=== PATIENT | female | born 1975 | race Caucasian/White ===

== ENCOUNTER 2018-09-26 09:41 | Emergency (ER) | payer MEDICAID ==
[~2018-09-26] VITALS: Ht 160 cm; Wt 125.8 kg
[~2018-09-26 09:41] MED LIST: ALBU18HF2 INH; ARIP10TA15 PO; DIAZ2TAB3 PO; DIPH25CA83 PO; ESZO3TAB66 PO; ONDA4TAB6 PO
[2018-09-26 10:33] LABS: BASOPHILS % (AUTO) 0.3 % (0-1); EOSINOPHILS # (AUTO) 0.3 X10'3 (0-0.9); EOSINOPHILS % (AUTO) 2.4 % (0-6); HEMATOCRIT 43.2 % (35.0-45.0); HEMOGLOBIN 14.7 g/dl (12.0-16.0); LYMPHOCYTES # (AUTO) 1.4 X10'3 (1.1-4.8); LYMPHOCYTES % (AUTO) 11.3 % (21-51); MEAN CORPUSCULAR HEMOGLOBIN 29.4 PG (27.0-31.0); MEAN CORPUSCULAR HGB CONC 33.9 g/dL (33.0-36.5); MEAN CORPUSCULAR VOLUME 86.6 FL (78-98); MEAN PLATELET VOLUME 8.4 FL (7.4-10.4); MONOCYTES # (AUTO) 0.5 X10'3 (0-0.9); MONOCYTES % (AUTO) 4.2 % (2-12); NEUTROPHILS # (AUTO) 9.8 X10'3 (1.8-7.7); NEUTROPHILS % (AUTO) 81.8 % (42-75); PLATELET COUNT 296 X10'3 (140-440); RED BLOOD COUNT 4.99 X10'6 (4.20-5.60); RED CELL DISTRIBUTION WIDTH 14.5 % (11.5-14.5)
[2018-09-26] MEDS ORDERED: normal saline 1000ml 1,000 ML IV ONE ×2 (10:45→12:50)
[2018-09-26] MEDS ORDERED: ondansetron/PF 4mg/2ml inj IV ONE ×2 (10:45→12:50)
[2018-09-26 10:47] LABS: ALANINE AMINOTRANSFERASE 24 U/L (12-78); ALBUMIN 3.9 G/DL (3.4-5.0); ALBUMIN/GLOBULIN RATIO 0.9 (1.1-1.5); ALKALINE PHOSPHATASE 76 IU/L (46-116); AMYLASE 29 U/L (25-115); ANION GAP 12 (8-16); ASPARTATE AMINO TRANSFERASE 25 U/L (10-37); BILIRUBIN,TOTAL 0.4 MG/DL (0.1-1.0); BLOOD UREA NITROGEN 17 MG/DL (7-18); BUN/CREATININE RATIO 18.5 (6.6-38.0); CALCIUM 8.9 MG/DL (8.5-10.1); CHLORIDE 104 MMOL/L (99-107); CREATININE 0.92 MG/DL (0.40-0.90); GLUCOSE 106 MG/DL (70-104); LIPASE < 50 U/L (73-393); POTASSIUM 3.7 MMOL/L (3.5-5.1); SODIUM 140 MMOL/L (135-145); TOTAL CARBON DIOXIDE 24.1 MMOL/L (24-32); TOTAL PROTEIN 8.1 G/DL (6.4-8.2); eGFR 67 ML/MIN
[2018-09-26] MEDS ORDERED: METH500T PO (10:51)
[2018-09-26] MEDS ORDERED: ketorolac tromethamine 15mg/ml inj. IV ONE (10:55)
[2018-09-26] MEDS ORDERED: LORazepam 2 mg/ml vial IV ONE (10:55)
[2018-09-26] MEDS ORDERED: proCHLORperazine 10 MG/2 ml inj IV ONE (10:55)
[2018-09-26 11:00] LABS: PROTHROMBIN TIME 10.3 SECONDS (9.0-12.0)
[2018-09-26 12:23] LABS: CLARITY,URINE CLEAR (Clear); COLOR,URINE YELLOW (Yellow); GLUCOSE, URINE NEGATIVE (Neg); KETONES,URINE 40 mg/dl (Neg); LEUKOCYTE ESTERASE ,URINE NEGATIVE (Neg); NITRITES, URINE NEGATIVE (Neg); OCCULT BLOOD,URINE TRACE-LYSED (Neg); PH,URINE 8.5 (4.8-8.0); PROTEIN,URINE NEGATIVE (Neg); UROBILINOGEN,URINE 0.2 E.U/dL (0.2-1.0)
[2018-09-26 12:29] LABS: URINE HCG NEGATIVE (NEG)
[2018-09-26 12:33] LABS: UA COLLECTION TYPE NON-SPECIFIED
[2018-09-26 12:40] LABS: SQUAMOUS EPITHELIAL CELL,UR FEW /LPF (FEW)
[2018-09-26 12:41] LABS: BACTERIA,URINE 1+ /HPF (Neg); RBC,URINE 0-2 /HPF (0-2); WBC,URINE 0-4 /HPF (0-4)
[2018-09-26] MEDS ORDERED: HYDR-3965 PO (12:52)
[2018-09-26] MEDS ORDERED: ONDA8TAB6 PO (12:52)
[2018-09-26 13:23] VITALS: BP 179/98
== END 2018-09-26 13:52 | disposition home or self-care (01) ==
LOC: ER 09:42
DX: R10.9 Unspecified abdominal pain (principal); R11.2 Nausea with vomiting, unspecified; J45.909 Unspecified asthma, uncomplicated; M19.90 Unspecified osteoarthritis, unspecified site; Z86.69 Personal history of other diseases of the nervous system and sense organs; Z90.710 Acquired absence of both cervix and uterus; Z98.890 Other specified postprocedural states; Z88.0 Allergy status to penicillin; Z88.5 Allergy status to narcotic agent; Z88.6 Allergy status to analgesic agent; Z79.899 Other long term (current) drug therapy
CPT/HCPCS: 36415; 74176; 80053; 81001; 81025; 82150; 83690; 85025; 85610; 96374; 96375; 96376; 99284; J0780; J1885; J2060; J2405; J7030

== ENCOUNTER 2018-11-04 14:43 | Emergency (ER) | payer MEDICAID ==
[~2018-11-04] VITALS: Ht 160 cm; Wt 125.0 kg
[~2018-11-04 14:43] MED LIST changes: +METH500T PO; +ONDA8TAB6 PO
[2018-11-04 14:51] VITALS: BP 119/83
== END 2018-11-04 16:13 | disposition home or self-care (01) ==
LOC: ER 14:44
DX: S70.11XA Contusion of right thigh, initial encounter (principal); J45.909 Unspecified asthma, uncomplicated; M19.90 Unspecified osteoarthritis, unspecified site; G89.29 Other chronic pain; Z90.710 Acquired absence of both cervix and uterus; Z88.6 Allergy status to analgesic agent; Z88.1 Allergy status to other antibiotic agents; Z88.0 Allergy status to penicillin; W54.1XXA Struck by dog, initial encounter; Y93.89 Activity, other specified; Y92.89 Other specified places as the place of occurrence of the external cause; Y99.8 Other external cause status
CPT/HCPCS: 99281

== ENCOUNTER 2019-04-19 17:53 | Emergency (ER) | payer MEDICAID ==
[~2019-04-19] VITALS: Ht 160 cm; Wt 123.5 kg
[2019-04-19 18:58] LABS: BASOPHILS % (AUTO) 0.3 % (0-1); EOSINOPHILS % (AUTO) 0.1 % (0-6); HEMATOCRIT 40.5 % (35.0-45.0); HEMOGLOBIN 13.8 g/dl (12.0-16.0); LYMPHOCYTES # (AUTO) 0.9 X10'3 (1.1-4.8); LYMPHOCYTES % (AUTO) 6.8 % (21-51); MEAN CORPUSCULAR HEMOGLOBIN 30.3 PG (27.0-31.0); MEAN CORPUSCULAR HGB CONC 34.1 g/dL (33.0-36.5); MEAN CORPUSCULAR VOLUME 88.8 FL (78-98); MEAN PLATELET VOLUME 8.7 FL (7.4-10.4); MONOCYTES # (AUTO) 0.3 X10'3 (0-0.9); NEUTROPHILS % (AUTO) 90.8 % (42-75); PLATELET COUNT 283 X10'3 (140-440); RED BLOOD COUNT 4.57 X10'6 (4.20-5.60); RED CELL DISTRIBUTION WIDTH 13.7 % (11.5-14.5); WHITE BLOOD COUNT 13.2 X10'3 (4.5-11.0)
[2019-04-19 19:14] LABS: ALANINE AMINOTRANSFERASE 30 U/L (12-78); ALBUMIN 4.1 G/DL (3.4-5.0); ALKALINE PHOSPHATASE 69 IU/L (46-116); ANION GAP 12 (8-16); ASPARTATE AMINO TRANSFERASE 15 U/L (10-37); BILIRUBIN,TOTAL 0.3 MG/DL (0.1-1.0); BLOOD UREA NITROGEN 13 MG/DL (7-18); BUN/CREATININE RATIO 14.4 (6.6-38.0); CALCIUM 8.9 MG/DL (8.5-10.1); CHLORIDE 104 MMOL/L (99-107); GLUCOSE 138 MG/DL (70-104); LIPASE < 50 U/L (73-393); POTASSIUM 3.5 MMOL/L (3.5-5.1); SODIUM 140 MMOL/L (135-145); TOTAL CARBON DIOXIDE 23.9 MMOL/L (24-32); TOTAL PROTEIN 8.2 G/DL (6.4-8.2); eGFR 69 ML/MIN
[2019-04-19] MEDS ORDERED: normal saline 1000ML IV soln IVB ONE ×2 (19:45→20:25)
[2019-04-19 19:57] LABS: URINE HCG NEGATIVE (NEG)
[2019-04-19 20:00] LABS: CLARITY,URINE CLEAR (Clear); COLOR,URINE YELLOW (Yellow); GLUCOSE, URINE NEGATIVE (Neg); KETONES,URINE 40 mg/dl (Neg); LEUKOCYTE ESTERASE ,URINE NEGATIVE (Neg); NITRITES, URINE NEGATIVE (Neg); OCCULT BLOOD,URINE SMALL (Neg); PH,URINE 7.5 (4.8-8.0); PROTEIN,URINE NEGATIVE (Neg); UROBILINOGEN,URINE 0.2 E.U/dL (0.2-1.0)
[2019-04-19 20:05] LABS: UA COLLECTION TYPE VOIDED
[2019-04-19 20:07] LABS: BACTERIA,URINE NONE SEEN /HPF (Neg); MUCUS STRANDS NONE SEEN /LPF (Neg); SQUAMOUS EPITHELIAL CELL,UR FEW /LPF (FEW); WBC,URINE NONE SEEN /HPF (0-4)
[2019-04-19] MEDS ORDERED: LORazepam 2 mg/ml vial IV ONE (20:25)
[2019-04-19] MEDS ORDERED: diphenhydrAMINE 50 mg/ml inj IV ONE (20:25)
[2019-04-19] MEDS ORDERED: metoclopramide 5 mg/ml inj IV ONE (20:25)
[2019-04-19] MEDS ORDERED: fentaNYL/PF 50MCG/1 ML 2ML syringe IV ONE (20:25)
[2019-04-19] MEDS ORDERED: levoFLOXACIN-Levaquin 500mg/D5 100 ML IV ONE (21:05)
[2019-04-19] MEDS ORDERED: ONDA4TAB12 PO (21:22)
[2019-04-19] MEDS ORDERED: HYDR-3965 PO (21:22)
[2019-04-19] MEDS ORDERED: CIPR-230 PO (21:22)
[2019-04-19] MEDS ORDERED: METR-159 PO (21:22)
--- NOTE | 2019-04-19 21:58 | NUR ---
PT UP TO BR TO VOID. REPROTS PAIN NOW 7 OUT OF 10 AND ONLY IN HER MID ABDOMEN, NO LOGER RADIATING TO HER BACK. STABLE VS. DR. DAVIDSON TALKING WITH PT AND SHE IS PREPARED FOR DC ONCE LEVOQUIN FINISHES IN APROX 1 HR. PT IS AGREEABLE TO THIS PLAN.
[2019-04-19 22:05] VITALS: BP 131/76
== END 2019-04-19 22:10 | disposition home or self-care (01) ==
LOC: ER 17:54
DX: R10.30 Lower abdominal pain, unspecified (principal); R11.2 Nausea with vomiting, unspecified; J45.909 Unspecified asthma, uncomplicated; M19.90 Unspecified osteoarthritis, unspecified site; G89.29 Other chronic pain; Z87.442 Personal history of urinary calculi; Z86.69 Personal history of other diseases of the nervous system and sense organs; Z90.710 Acquired absence of both cervix and uterus; Z98.890 Other specified postprocedural states; Z90.721 Acquired absence of ovaries, unilateral; Z88.0 Allergy status to penicillin; Z88.6 Allergy status to analgesic agent; Z88.5 Allergy status to narcotic agent; Z88.1 Allergy status to other antibiotic agents; Z79.899 Other long term (current) drug therapy
CPT/HCPCS: 36415; 74176; 80053; 81001; 81025; 83690; 84145; 85025; 85610; 96361; 96365; 96366; 96375; 99284; J1200; J1956; J2060; J2765; J3010; J7030

== ENCOUNTER 2019-04-21 09:46 | Emergency (ER) | payer MEDICAID ==
[~2019-04-21] VITALS: Ht 160 cm; Wt 123.8 kg
[~2019-04-21 09:46] MED LIST changes: +CIPR-230 PO; +HYDR-3965 PO; +METR-159 PO; +ONDA4TAB12 PO
[2019-04-21] MEDS ORDERED: ondansetron/PF 4mg/2ml inj IV ONE ×2 (10:20→11:15)
[2019-04-21] MEDS ORDERED: haloperidol lactate 5mg/ml inj IM ONE (11:15)
[2019-04-21] MEDS ORDERED: normal saline 1000ML IV soln IVB ONE (11:15)
[2019-04-21] MEDS ORDERED: diphenhydrAMINE 50 mg/ml inj IM ONE (11:15)
[2019-04-21 11:55] LABS: URINE HCG NEGATIVE (NEG)
[2019-04-21 12:02] LABS: URINE AMPHETAMINE SCREEN NEGATIVE (Neg); URINE BARBITUATE SCREEN NEGATIVE (Neg); URINE BENZODIAZEPINES SCREEN POSITIVE (Neg); URINE CANNABINOID SCREEN POSITIVE (Neg); URINE COCAINE SCREEN NEGATIVE (Neg); URINE METHADONE SCREEN NEGATIVE (Neg); URINE OPIATE SCREEN POSITIVE (Neg); URINE PHENCYCLIDINE SCREEN NEGATIVE (Neg)
[2019-04-21] MEDS ORDERED: acetaminophen 325mg tablet PO ONE (13:05)
[2019-04-21] MEDS ORDERED: LORazepam 2 mg/ml vial IV ONE (13:05)
--- NOTE | 2019-04-21 13:14 | NUR ---
PT WAS VERY HAPPT YO FIND OUT THAT SHE WAS GETTING ATIVAN.
[2019-04-21 13:47] LABS: BASOPHILS % (AUTO) 0.1 % (0-1); EOSINOPHILS % (AUTO) 0.2 % (0-6); HEMATOCRIT 40.2 % (35.0-45.0); HEMOGLOBIN 13.5 g/dl (12.0-16.0); LYMPHOCYTES # (AUTO) 0.6 X10'3 (1.1-4.8); MEAN CORPUSCULAR HEMOGLOBIN 29.8 PG (27.0-31.0); MEAN CORPUSCULAR HGB CONC 33.5 g/dL (33.0-36.5); MEAN CORPUSCULAR VOLUME 88.9 FL (78-98); MEAN PLATELET VOLUME 8.9 FL (7.4-10.4); MONOCYTES # (AUTO) 0.2 X10'3 (0-0.9); MONOCYTES % (AUTO) 2.8 % (2-12); NEUTROPHILS # (AUTO) 7.9 X10'3 (1.8-7.7); NEUTROPHILS % (AUTO) 89.9 % (42-75); PLATELET COUNT 256 X10'3 (140-440); RED BLOOD COUNT 4.53 X10'6 (4.20-5.60); RED CELL DISTRIBUTION WIDTH 13.6 % (11.5-14.5); WHITE BLOOD COUNT 8.7 X10'3 (4.5-11.0)
[2019-04-21 13:48] LABS: ALANINE AMINOTRANSFERASE 44 U/L (12-78); ALKALINE PHOSPHATASE 61 IU/L (46-116); ANION GAP 11 (8-16); ASPARTATE AMINO TRANSFERASE 34 U/L (10-37); BILIRUBIN,TOTAL 0.4 MG/DL (0.1-1.0); BLOOD UREA NITROGEN 11 MG/DL (7-18); BUN/CREATININE RATIO 11.6 (6.6-38.0); CALCIUM 8.3 MG/DL (8.5-10.1); CHLORIDE 106 MMOL/L (99-107); CREATININE 0.95 MG/DL (0.40-0.90); GLUCOSE 107 MG/DL (70-104); LIPASE < 50 U/L (73-393); POTASSIUM 3.1 MMOL/L (3.5-5.1); SODIUM 143 MMOL/L (135-145); TOTAL CARBON DIOXIDE 25.7 MMOL/L (24-32); eGFR 65 ML/MIN
[2019-04-21] MEDS ORDERED: potassium Cl 20 mEq SR tablet PO STA (13:49)
[2019-04-21 14:19] VITALS: BP 162/91
== END 2019-04-21 10:49 | disposition home or self-care (01) ==
LOC: ER 09:47
DX: G43.A0 Cyclical vomiting, in migraine, not intractable (principal); R10.84 Generalized abdominal pain; J45.909 Unspecified asthma, uncomplicated; G89.29 Other chronic pain; M19.90 Unspecified osteoarthritis, unspecified site; Z87.442 Personal history of urinary calculi; Z86.69 Personal history of other diseases of the nervous system and sense organs; Z90.710 Acquired absence of both cervix and uterus; Z90.721 Acquired absence of ovaries, unilateral; Z98.890 Other specified postprocedural states; Z88.0 Allergy status to penicillin; Z88.6 Allergy status to analgesic agent; Z88.5 Allergy status to narcotic agent; Z88.1 Allergy status to other antibiotic agents; Z88.8 Allergy status to other drugs, medicaments and biological substances; Z79.899 Other long term (current) drug therapy
CPT/HCPCS: 36415; 80053; 80305; 81025; 83690; 85025; 96361; 96372; 96374; 96375; 99283; J1200; J1630; J2060; J2405; J7030

== ENCOUNTER 2019-04-23 10:02 | Emergency (ER) | payer MEDICAID ==
[~2019-04-23] VITALS: Ht 160 cm; Wt 121.0 kg
[2019-04-23] MEDS ORDERED: normal saline 1000ML IV soln IVB ONE (11:00)
[2019-04-23] MEDS ORDERED: haloperidol lactate 5mg/ml inj IM ONE (11:00)
[2019-04-23] MEDS ORDERED: LORazepam 2 mg/ml vial IV ONE (11:00)
[2019-04-23] MEDS ORDERED: metoclopramide 5 mg/ml inj IV ONE (11:00)
[2019-04-23 11:27] LABS: BASOPHILS # (AUTO) 0.1 X10'3 (0-0.2); BASOPHILS % (AUTO) 0.4 % (0-1); EOSINOPHILS # (AUTO) 0.1 X10'3 (0-0.9); EOSINOPHILS % (AUTO) 0.6 % (0-6); HEMATOCRIT 43.6 % (35.0-45.0); HEMOGLOBIN 14.6 g/dl (12.0-16.0); LYMPHOCYTES # (AUTO) 1.3 X10'3 (1.1-4.8); LYMPHOCYTES % (AUTO) 11.3 % (21-51); MEAN CORPUSCULAR HEMOGLOBIN 29.7 PG (27.0-31.0); MEAN CORPUSCULAR HGB CONC 33.6 g/dL (33.0-36.5); MEAN CORPUSCULAR VOLUME 88.6 FL (78-98); MEAN PLATELET VOLUME 8.5 FL (7.4-10.4); MONOCYTES # (AUTO) 0.5 X10'3 (0-0.9); MONOCYTES % (AUTO) 4.7 % (2-12); NEUTROPHILS # (AUTO) 9.6 X10'3 (1.8-7.7); PLATELET COUNT 325 X10'3 (140-440); RED BLOOD COUNT 4.92 X10'6 (4.20-5.60); RED CELL DISTRIBUTION WIDTH 13.8 % (11.5-14.5); WHITE BLOOD COUNT 11.6 X10'3 (4.5-11.0)
[2019-04-23 11:46] LABS: ALANINE AMINOTRANSFERASE 66 U/L (12-78); ALBUMIN 4.3 G/DL (3.4-5.0); ALBUMIN/GLOBULIN RATIO 1.1 (1.1-1.5); ALKALINE PHOSPHATASE 65 IU/L (46-116); ANION GAP 15 (8-16); ASPARTATE AMINO TRANSFERASE 40 U/L (10-37); BILIRUBIN,TOTAL 0.4 MG/DL (0.1-1.0); BLOOD UREA NITROGEN 15 MG/DL (7-18); BUN/CREATININE RATIO 14.2 (6.6-38.0); CALCIUM 9.1 MG/DL (8.5-10.1); CHLORIDE 102 MMOL/L (99-107); CREATININE 1.06 MG/DL (0.40-0.90); GLUCOSE 114 MG/DL (70-104); LIPASE < 50 U/L (73-393); POTASSIUM 3.3 MMOL/L (3.5-5.1); SODIUM 140 MMOL/L (135-145); TOTAL CARBON DIOXIDE 22.9 MMOL/L (24-32); TOTAL PROTEIN 8.3 G/DL (6.4-8.2); eGFR 57 ML/MIN
--- NOTE | 2019-04-23 11:57 | NUR ---
patient on bed awake,extra warm blanket given.
[2019-04-23 12:04] LABS: URINE HCG NEGATIVE (NEG)
[2019-04-23 12:11] LABS: GLUCOSE, URINE NEGATIVE (Neg); KETONES,URINE 15 mg/dl (Neg); LEUKOCYTE ESTERASE ,URINE NEGATIVE (Neg); NITRITES, URINE NEGATIVE (Neg); OCCULT BLOOD,URINE TRACE-INTACT (Neg); PROTEIN,URINE 30 mg/dl (Neg); UROBILINOGEN,URINE 0.2 E.U/dL (0.2-1.0)
[2019-04-23 12:14] LABS: COLOR,URINE DARK YELLOW (Yellow)
[2019-04-23 12:15] LABS: CLARITY,URINE CLOUDY (Clear); UA COLLECTION TYPE CLN CATCH MIDSTREAM
[2019-04-23 12:36] VITALS: BP 196/92
[2019-04-23 12:54] LABS: WBC,URINE 0-4 /HPF (0-4)
[2019-04-23 12:55] LABS: SQUAMOUS EPITHELIAL CELL,UR MANY /LPF (FEW)
[2019-04-23 12:56] LABS: BACTERIA,URINE FEW /HPF (Neg); RBC,URINE 0-2 /HPF (0-2)
[2019-04-23 13:04] LABS: CAL OXALATE CRYSTALS 1+ /HPF (NEGATIVE); HYALINE CASTS 0-3 /LPF (NEGATIVE); MUCUS STRANDS MODERATE /LPF (Neg)
== END 2019-04-23 12:39 | disposition home or self-care (01) ==
LOC: ER 10:03
DX: G43.A0 Cyclical vomiting, in migraine, not intractable (principal); R10.84 Generalized abdominal pain; R19.7 Diarrhea, unspecified; J45.909 Unspecified asthma, uncomplicated; M19.90 Unspecified osteoarthritis, unspecified site; G89.29 Other chronic pain; Z87.442 Personal history of urinary calculi; Z86.69 Personal history of other diseases of the nervous system and sense organs; Z90.710 Acquired absence of both cervix and uterus; Z98.890 Other specified postprocedural states; Z90.721 Acquired absence of ovaries, unilateral; Z88.0 Allergy status to penicillin; Z88.6 Allergy status to analgesic agent; Z88.5 Allergy status to narcotic agent; Z88.1 Allergy status to other antibiotic agents; Z79.899 Other long term (current) drug therapy
CPT/HCPCS: 36415; 80053; 81001; 81025; 83690; 85025; 96361; 96372; 96374; 96375; 99283; J1630; J2060; J2765; J7030

== ENCOUNTER 2019-05-04 08:21 | Emergency (ER) | payer MEDICAID ==
[~2019-05-04] VITALS: Ht 160 cm; Wt 122.7 kg
[~2019-05-04 08:21] MED LIST changes: -METR-159 PO
[2019-05-04 09:22] LABS: BASOPHILS # (AUTO) 0.1 X10'3 (0-0.2); BASOPHILS % (AUTO) 0.8 % (0-1); EOSINOPHILS # (AUTO) 0.3 X10'3 (0-0.9); EOSINOPHILS % (AUTO) 2.8 % (0-6); HEMATOCRIT 44.1 % (35.0-45.0); HEMOGLOBIN 14.8 g/dl (12.0-16.0); LYMPHOCYTES # (AUTO) 1.9 X10'3 (1.1-4.8); LYMPHOCYTES % (AUTO) 16.9 % (21-51); MEAN CORPUSCULAR HEMOGLOBIN 29.7 PG (27.0-31.0); MEAN CORPUSCULAR HGB CONC 33.5 g/dL (33.0-36.5); MEAN CORPUSCULAR VOLUME 88.7 FL (78-98); MEAN PLATELET VOLUME 8.6 FL (7.4-10.4); MONOCYTES # (AUTO) 0.5 X10'3 (0-0.9); MONOCYTES % (AUTO) 4.7 % (2-12); NEUTROPHILS # (AUTO) 8.4 X10'3 (1.8-7.7); NEUTROPHILS % (AUTO) 74.8 % (42-75); PLATELET COUNT 412 X10'3 (140-440); RED BLOOD COUNT 4.97 X10'6 (4.20-5.60); RED CELL DISTRIBUTION WIDTH 13.9 % (11.5-14.5); WHITE BLOOD COUNT 11.2 X10'3 (4.5-11.0)
[2019-05-04] MEDS ORDERED: ondansetron/PF 4mg/2ml inj IV ONE ×2 (09:30→11:30)
[2019-05-04] MEDS ORDERED: pantoprazole 40 MG vial IV ONE (09:30)
[2019-05-04] MEDS ORDERED: LORazepam 2 mg/ml vial IV ONE (09:30)
[2019-05-04] MEDS ORDERED: haloperidol lactate 5mg/ml inj IM ONE (09:30)
[2019-05-04] MEDS ORDERED: diphenhydrAMINE 50 mg/ml inj IV ONE (09:30)
[2019-05-04 09:32] LABS: ALANINE AMINOTRANSFERASE 37 U/L (12-78); ALBUMIN 4.2 G/DL (3.4-5.0); ALKALINE PHOSPHATASE 70 IU/L (46-116); ANION GAP 12 (8-16); ASPARTATE AMINO TRANSFERASE 17 U/L (10-37); BILIRUBIN,TOTAL 0.2 MG/DL (0.1-1.0); BLOOD UREA NITROGEN 24 MG/DL (7-18); BUN/CREATININE RATIO 26.1 (6.6-38.0); CALCIUM 9.8 MG/DL (8.5-10.1); CHLORIDE 106 MMOL/L (99-107); CREATININE 0.92 MG/DL (0.40-0.90); GLUCOSE 112 MG/DL (70-104); LIPASE 57 U/L (73-393); POTASSIUM 4.3 MMOL/L (3.5-5.1); SODIUM 142 MMOL/L (135-145); TOTAL PROTEIN 8.5 G/DL (6.4-8.2); eGFR 67 ML/MIN
--- NOTE | 2019-05-04 11:26 | NUR ---
DR PINEDA INFORMED PT ALREADY WALKED TO BATHROOM TO PROVIDE CLEAN CATCH URINE, WILL EVALUATE AND DETERMINE IF STRAIGHT CATH IS NEEDED, RECEIVED VERBAL ORDER 4 MG IV ZOFRAN, CLARIFIED PT DID HAVE 8 MG IV ZOFRAN EARLIER AND OK TO GIVE ADDITIONAL VERBAL ORDER FOR 4 MG.
[2019-05-04 11:29] VITALS: BP 156/92
[2019-05-04 11:32] LABS: CLARITY,URINE SLIGHTLY CLOUDY (Clear); COLOR,URINE YELLOW (Yellow); GLUCOSE, URINE NEGATIVE (Neg); KETONES,URINE NEGATIVE (Neg); LEUKOCYTE ESTERASE ,URINE NEGATIVE (Neg); NITRITES, URINE NEGATIVE (Neg); OCCULT BLOOD,URINE TRACE-INTACT (Neg); PROTEIN,URINE NEGATIVE (Neg); UROBILINOGEN,URINE 0.2 E.U/dL (0.2-1.0)
[2019-05-04 11:39] LABS: UA COLLECTION TYPE CLN CATCH MIDSTREAM
[2019-05-04 11:42] LABS: SQUAMOUS EPITHELIAL CELL,UR FEW /LPF (FEW)
[2019-05-04 11:43] LABS: BACTERIA,URINE NONE SEEN /HPF (Neg); RBC,URINE NONE SEEN /HPF (0-2); WBC,URINE NONE SEEN /HPF (0-4)
== END 2019-05-04 12:56 | disposition home or self-care (01) ==
LOC: ER 08:22
DX: G89.29 Other chronic pain (principal); R10.13 Epigastric pain; R10.11 Right upper quadrant pain; J45.909 Unspecified asthma, uncomplicated; M19.90 Unspecified osteoarthritis, unspecified site; Z87.442 Personal history of urinary calculi; Z90.710 Acquired absence of both cervix and uterus; Z88.0 Allergy status to penicillin; Z88.6 Allergy status to analgesic agent; Z88.1 Allergy status to other antibiotic agents; Z88.5 Allergy status to narcotic agent; Z79.2 Long term (current) use of antibiotics; Z79.899 Other long term (current) drug therapy
CPT/HCPCS: 36415; 74022; 80053; 81001; 83690; 85025; 85610; 96372; 96374; 96375; 96376; 99284; C9113; J1200; J1630; J2060; J2405

== ENCOUNTER 2019-05-06 08:24 | Emergency (ER) | payer MEDICAID ==
[~2019-05-06] VITALS: Ht 160 cm; Wt 122.7 kg
[2019-05-06] MEDS ORDERED: LORazepam 2 mg/ml vial IV ONE (08:30)
[2019-05-06] MEDS ORDERED: normal saline 1000ML IV soln IVB ONE (08:30)
[2019-05-06] MEDS ORDERED: proCHLORperazine 10 MG/2 ml inj IV ONE (08:30)
[2019-05-06 08:58] LABS: BASOPHILS # (AUTO) 0.1 X10'3 (0-0.2); BASOPHILS % (AUTO) 0.9 % (0-1); EOSINOPHILS # (AUTO) 0.2 X10'3 (0-0.9); EOSINOPHILS % (AUTO) 2.4 % (0-6); HEMOGLOBIN 15.2 g/dl (12.0-16.0); LYMPHOCYTES # (AUTO) 2.2 X10'3 (1.1-4.8); LYMPHOCYTES % (AUTO) 21.8 % (21-51); MEAN CORPUSCULAR HGB CONC 33.8 g/dL (33.0-36.5); MEAN CORPUSCULAR VOLUME 88.7 FL (78-98); MEAN PLATELET VOLUME 7.9 FL (7.4-10.4); MONOCYTES # (AUTO) 0.5 X10'3 (0-0.9); MONOCYTES % (AUTO) 5.5 % (2-12); NEUTROPHILS # (AUTO) 6.9 X10'3 (1.8-7.7); NEUTROPHILS % (AUTO) 69.4 % (42-75); PLATELET COUNT 413 X10'3 (140-440); RED BLOOD COUNT 5.07 X10'6 (4.20-5.60); RED CELL DISTRIBUTION WIDTH 13.9 % (11.5-14.5); WHITE BLOOD COUNT 9.9 X10'3 (4.5-11.0)
[2019-05-06 09:12] LABS: ALANINE AMINOTRANSFERASE 46 U/L (12-78); ALBUMIN 4.3 G/DL (3.4-5.0); ALKALINE PHOSPHATASE 63 IU/L (46-116); ANION GAP 12 (8-16); ASPARTATE AMINO TRANSFERASE 27 U/L (10-37); BILIRUBIN,TOTAL 0.5 MG/DL (0.1-1.0); BLOOD UREA NITROGEN 15 MG/DL (7-18); BUN/CREATININE RATIO 17.2 (6.6-38.0); CALCIUM 9.4 MG/DL (8.5-10.1); CHLORIDE 104 MMOL/L (99-107); CREATININE 0.87 MG/DL (0.40-0.90); GLUCOSE 116 MG/DL (70-104); LIPASE < 50 U/L (73-393); POTASSIUM 3.9 MMOL/L (3.5-5.1); SODIUM 140 MMOL/L (135-145); TOTAL CARBON DIOXIDE 23.6 MMOL/L (24-32); TOTAL PROTEIN 8.6 G/DL (6.4-8.2); eGFR 72 ML/MIN
[2019-05-06] MEDS ORDERED: ONDA4TAB6 PO (09:30)
[2019-05-06 10:10] VITALS: BP 195/97
== END 2019-05-06 10:11 | disposition home or self-care (01) ==
LOC: ER 08:24
DX: G89.29 Other chronic pain (principal); R10.84 Generalized abdominal pain; G43.A0 Cyclical vomiting, in migraine, not intractable; E86.0 Dehydration; J45.909 Unspecified asthma, uncomplicated; M19.90 Unspecified osteoarthritis, unspecified site; Z87.442 Personal history of urinary calculi; Z86.69 Personal history of other diseases of the nervous system and sense organs; Z90.710 Acquired absence of both cervix and uterus; Z98.890 Other specified postprocedural states; Z90.721 Acquired absence of ovaries, unilateral; Z88.0 Allergy status to penicillin; Z88.5 Allergy status to narcotic agent; Z88.1 Allergy status to other antibiotic agents; Z88.6 Allergy status to analgesic agent; Z79.899 Other long term (current) drug therapy
CPT/HCPCS: 36415; 80053; 83690; 85025; 96374; 96375; 99283; J0780; J2060; J7030; 96361

== ENCOUNTER 2019-07-10 09:48 | Emergency (ER) | payer MEDICAID ==
[~2019-07-10] VITALS: Ht 157.5 cm; Wt 120.0 kg
[~2019-07-10 09:48] MED LIST changes: -CIPR-230 PO; -HYDR-3965 PO
[2019-07-10] MEDS ORDERED: LORazepam 2 mg/ml vial IV ONE (10:00)
[2019-07-10] MEDS ORDERED: haloperidol lactate 5mg/ml inj IM ONE (10:00)
[2019-07-10] MEDS ORDERED: ketorolac trometh. 30mg/ml inj. IV ONE (10:00)
[2019-07-10] MEDS ORDERED: normal saline 1000ML IV soln IVB ONE (10:00)
[2019-07-10 10:31] LABS: BASOPHILS % (AUTO) 0.5 % (0-1); EOSINOPHILS # (AUTO) 0.2 X10'3 (0-0.9); HEMATOCRIT 41.2 % (35.0-45.0); HEMOGLOBIN 13.9 g/dl (12.0-16.0); LYMPHOCYTES # (AUTO) 1.6 X10'3 (1.1-4.8); LYMPHOCYTES % (AUTO) 17.8 % (21-51); MEAN CORPUSCULAR HEMOGLOBIN 29.4 PG (27.0-31.0); MEAN CORPUSCULAR HGB CONC 33.7 g/dL (33.0-36.5); MEAN CORPUSCULAR VOLUME 87.2 FL (78-98); MEAN PLATELET VOLUME 8.7 FL (7.4-10.4); MONOCYTES # (AUTO) 0.4 X10'3 (0-0.9); MONOCYTES % (AUTO) 4.3 % (2-12); NEUTROPHILS # (AUTO) 6.8 X10'3 (1.8-7.7); NEUTROPHILS % (AUTO) 75.4 % (42-75); PLATELET COUNT 248 X10'3 (140-440); RED BLOOD COUNT 4.72 X10'6 (4.20-5.60); RED CELL DISTRIBUTION WIDTH 13.5 % (11.5-14.5); WHITE BLOOD COUNT 9.1 X10'3 (4.5-11.0)
[2019-07-10 10:34] LABS: URINE HCG NEGATIVE (NEG)
[2019-07-10 10:41] LABS: URINE AMPHETAMINE SCREEN NEGATIVE (Neg); URINE BARBITUATE SCREEN NEGATIVE (Neg); URINE BENZODIAZEPINES SCREEN POSITIVE (Neg); URINE CANNABINOID SCREEN POSITIVE (Neg); URINE COCAINE SCREEN NEGATIVE (Neg); URINE METHADONE SCREEN NEGATIVE (Neg); URINE OPIATE SCREEN NEGATIVE (Neg); URINE PHENCYCLIDINE SCREEN NEGATIVE (Neg)
[2019-07-10 10:43] LABS: CLARITY,URINE SLIGHTLY CLOUDY (Clear); COLOR,URINE YELLOW (Yellow); GLUCOSE, URINE NEGATIVE (Neg); KETONES,URINE NEGATIVE (Neg); LEUKOCYTE ESTERASE ,URINE NEGATIVE (Neg); NITRITES, URINE NEGATIVE (Neg); OCCULT BLOOD,URINE SMALL (Neg); PH,URINE 5.5 (4.8-8.0); PROTEIN,URINE NEGATIVE (Neg); UROBILINOGEN,URINE 0.2 E.U/dL (0.2-1.0)
[2019-07-10 10:45] LABS: ALANINE AMINOTRANSFERASE 21 U/L (12-78); ALBUMIN 4.1 G/DL (3.4-5.0); ALKALINE PHOSPHATASE 73 IU/L (46-116); ANION GAP 10 (8-16); ASPARTATE AMINO TRANSFERASE 16 U/L (10-37); BILIRUBIN,TOTAL 0.2 MG/DL (0.1-1.0); BLOOD UREA NITROGEN 21 MG/DL (7-18); BUN/CREATININE RATIO 23.6 (6.6-38.0); CALCIUM 9.5 MG/DL (8.5-10.1); CHLORIDE 105 MMOL/L (99-107); CREATININE 0.89 MG/DL (0.40-0.90); GLUCOSE 102 MG/DL (70-104); LIPASE < 50 U/L (73-393); POTASSIUM 3.8 MMOL/L (3.5-5.1); SODIUM 141 MMOL/L (135-145); TOTAL CARBON DIOXIDE 26.4 MMOL/L (24-32); TOTAL PROTEIN 8.3 G/DL (6.4-8.2); eGFR 70 ML/MIN
[2019-07-10 10:45] LABS: UA COLLECTION TYPE CLN CATCH MIDSTREAM
[2019-07-10 10:55] LABS: MUCUS STRANDS FEW /LPF (Neg); SQUAMOUS EPITHELIAL CELL,UR MODERATE /LPF (FEW)
[2019-07-10 10:56] LABS: BACTERIA,URINE FEW /HPF (Neg); RBC,URINE 0-2 /HPF (0-2); STARCH,URINE FEW /HPF (NEGATIVE); WBC,URINE 0-4 /HPF (0-4)
[2019-07-10] MEDS ORDERED: dexamethasone sod phosphate 10mg/ml inj IV STA (10:56)
[2019-07-10] MEDS ORDERED: ondansetron/PF 4mg/2ml inj IV ONE (12:50)
[2019-07-10] MEDS ORDERED: ONDA4TAB6 PO (13:00)
[2019-07-10 13:22] VITALS: BP 163/98
== END 2019-07-10 13:25 | disposition home or self-care (01) ==
LOC: ER 09:48
DX: G43.A0 Cyclical vomiting, in migraine, not intractable (principal); F12.90 Cannabis use, unspecified, uncomplicated; J45.909 Unspecified asthma, uncomplicated; M19.90 Unspecified osteoarthritis, unspecified site; G89.29 Other chronic pain; Z86.69 Personal history of other diseases of the nervous system and sense organs; Z87.442 Personal history of urinary calculi; Z90.710 Acquired absence of both cervix and uterus; Z98.890 Other specified postprocedural states; Z90.721 Acquired absence of ovaries, unilateral; Z88.0 Allergy status to penicillin; Z88.6 Allergy status to analgesic agent; Z88.5 Allergy status to narcotic agent; Z88.1 Allergy status to other antibiotic agents; Z79.899 Other long term (current) drug therapy
CPT/HCPCS: 36415; 80053; 80305; 81001; 81025; 83690; 85025; 96372; 96374; 96375; 99284; J1100; J1630; J1885; J2060; J2405; J7030

== ENCOUNTER 2019-10-08 20:43 | Emergency (ER) | payer MEDICAID ==
[~2019-10-08] VITALS: Ht 157.5 cm; Wt 269.0 kg
[2019-10-08] MEDS ORDERED: ondansetron/PF 4mg/2ml inj IV ONE (21:05)
[2019-10-08] MEDS ORDERED: normal saline 1000ML IV soln IVB ONE (21:05)
[2019-10-08] MEDS ORDERED: LORazepam 2 mg/ml vial IV ONE (21:05)
[2019-10-08] MEDS ORDERED: magnesium 2GM in 50ml NS 50 ML IV ONE (21:10)
[2019-10-08] MEDS ORDERED: ringers solution, lacted 1,000 ML IV ONE (21:10)
[2019-10-08] MEDS ORDERED: haloperidol lactate 5mg/ml inj IM ONE (21:10)
--- NOTE | 2019-10-08 21:57 | NUR ---
relieving RN for break, in and out cath done with sterile technique, pt orly well, no complications, sample sent to lab
[2019-10-08 22:09] LABS: CLARITY,URINE CLEAR (Clear); COLOR,URINE YELLOW (Yellow); GLUCOSE, URINE NEGATIVE (Neg); KETONES,URINE TRACE mg/dl (Neg); LEUKOCYTE ESTERASE ,URINE NEGATIVE (Neg); NITRITES, URINE NEGATIVE (Neg); OCCULT BLOOD,URINE TRACE-LYSED (Neg); PH,URINE 7.5 (4.8-8.0); PROTEIN,URINE TRACE mg/dl (Neg); UROBILINOGEN,URINE 0.2 E.U/dL (0.2-1.0)
[2019-10-08 22:15] LABS: UA COLLECTION TYPE FOLEY CATH
[2019-10-08 22:17] LABS: BACTERIA,URINE NONE SEEN /HPF (Neg); WBC,URINE 0-4 /HPF (0-4)
[2019-10-08 22:18] LABS: SQUAMOUS EPITHELIAL CELL,UR MODERATE /LPF (FEW)
[2019-10-08 22:22] LABS: BASOPHILS % (AUTO) 0.4 % (0-1); EOSINOPHILS % (AUTO) 0 % (0-6); HEMATOCRIT 35.4 % (35.0-45.0); LYMPHOCYTES # (AUTO) 0.5 X10'3 (1.1-4.8); LYMPHOCYTES % (AUTO) 3.8 % (21-51); MEAN CORPUSCULAR HEMOGLOBIN 28.7 PG (27.0-31.0); MEAN CORPUSCULAR HGB CONC 33.9 g/dL (33.0-36.5); MEAN CORPUSCULAR VOLUME 84.9 FL (78-98); MEAN PLATELET VOLUME 8.4 FL (7.4-10.4); MONOCYTES # (AUTO) 0.2 X10'3 (0-0.9); MONOCYTES % (AUTO) 1.6 % (2-12); NEUTROPHILS # (AUTO) 12.5 X10'3 (1.8-7.7); NEUTROPHILS % (AUTO) 94.2 % (42-75); PLATELET COUNT 264 X10'3 (140-440); RED BLOOD COUNT 4.18 X10'6 (4.20-5.60); RED CELL DISTRIBUTION WIDTH 13.3 % (11.5-14.5); WHITE BLOOD COUNT 13.2 X10'3 (4.5-11.0)
[2019-10-08] MEDS ORDERED: iohexol 300mg/ml 100ml inj. ONE (22:28)
[2019-10-08 22:33] LABS: ALANINE AMINOTRANSFERASE 21 U/L (12-78); ALBUMIN 3.6 G/DL (3.4-5.0); ALKALINE PHOSPHATASE 68 IU/L (46-116); ANION GAP 9 (8-16); ASPARTATE AMINO TRANSFERASE 18 U/L (10-37); BILIRUBIN,TOTAL 0.3 MG/DL (0.1-1.0); BLOOD UREA NITROGEN 16 MG/DL (7-18); CALCIUM 8.6 MG/DL (8.5-10.1); CHLORIDE 108 MMOL/L (99-107); CREATININE 1.07 MG/DL (0.40-0.90); GLUCOSE 137 MG/DL (70-104); LIPASE < 50 U/L (73-393); POTASSIUM 3.6 MMOL/L (3.5-5.1); SODIUM 143 MMOL/L (135-145); TOTAL CARBON DIOXIDE 26.2 MMOL/L (24-32); TOTAL PROTEIN 7.1 G/DL (6.4-8.2); eGFR 56 ML/MIN
--- NOTE | 2019-10-08 22:52 | NUR ---
Pt. to CT
[2019-10-09] MEDS ORDERED: METR-159 PO (04:12)
[2019-10-09] MEDS ORDERED: CIPR-230 PO (04:12)
[2019-10-09 04:34] VITALS: BP 154/60
== END 2019-10-09 04:25 | disposition home or self-care (01) ==
LOC: ER 20:43
DX: K57.32 Diverticulitis of large intestine without perforation or abscess without bleeding (principal); J45.909 Unspecified asthma, uncomplicated; M19.90 Unspecified osteoarthritis, unspecified site; G89.29 Other chronic pain; F12.90 Cannabis use, unspecified, uncomplicated; Z90.710 Acquired absence of both cervix and uterus; Z98.890 Other specified postprocedural states; Z88.0 Allergy status to penicillin; Z88.5 Allergy status to narcotic agent; Z88.1 Allergy status to other antibiotic agents; Z88.6 Allergy status to analgesic agent; Z79.2 Long term (current) use of antibiotics; Z79.899 Other long term (current) drug therapy
CPT/HCPCS: 36415; 74177; 80053; 81001; 83690; 85025; 96365; 96366; 96372; 96375; 99285; J1630; J2060; J2405; J3475; J7030; Q9967; J7120

== ENCOUNTER 2019-10-10 07:12 | Emergency (ER) | payer MEDICAID ==
[~2019-10-10] VITALS: Ht 157.5 cm; Wt 117.0 kg
[~2019-10-10 07:12] MED LIST changes: +CIPR-230 PO; +METR-159 PO
[2019-10-10] MEDS ORDERED: normal saline 1000ML IV soln IVB ONE (07:25)
[2019-10-10] MEDS ORDERED: ondansetron/PF 4mg/2ml inj IV ONE (07:25)
[2019-10-10] MEDS ORDERED: morphine 4 MG/ML inj SYRINge IV PRN (07:25)
[2019-10-10] MEDS ORDERED: haloperidol lactate 5mg/ml inj IM ONE (07:55)
[2019-10-10] MEDS ORDERED: diphenhydrAMINE 50 mg/ml inj IV ONE (07:55)
--- NOTE | 2019-10-10 08:42 | NUR ---
lab notified pt is ready for re-draw
[2019-10-10 09:28] LABS: BASOPHILS # (AUTO) 0.1 X10'3 (0-0.2); BASOPHILS % (AUTO) 0.8 % (0-1); EOSINOPHILS % (AUTO) 0.3 % (0-6); HEMATOCRIT 37.1 % (35.0-45.0); HEMOGLOBIN 12.6 g/dl (12.0-16.0); LYMPHOCYTES # (AUTO) 0.8 X10'3 (1.1-4.8); LYMPHOCYTES % (AUTO) 10.8 % (21-51); MEAN CORPUSCULAR HEMOGLOBIN 29.2 PG (27.0-31.0); MEAN PLATELET VOLUME 8.3 FL (7.4-10.4); MONOCYTES # (AUTO) 0.3 X10'3 (0-0.9); MONOCYTES % (AUTO) 4.4 % (2-12); NEUTROPHILS # (AUTO) 6.5 X10'3 (1.8-7.7); NEUTROPHILS % (AUTO) 83.7 % (42-75); PLATELET COUNT 230 X10'3 (140-440); RED BLOOD COUNT 4.32 X10'6 (4.20-5.60); RED CELL DISTRIBUTION WIDTH 13.4 % (11.5-14.5); WHITE BLOOD COUNT 7.8 X10'3 (4.5-11.0)
[2019-10-10 09:45] LABS: ALANINE AMINOTRANSFERASE 20 U/L (12-78); ALBUMIN 3.8 G/DL (3.4-5.0); ALBUMIN/GLOBULIN RATIO 1.1 (1.1-1.5); ALKALINE PHOSPHATASE 68 IU/L (46-116); ANION GAP 12 (8-16); ASPARTATE AMINO TRANSFERASE 25 U/L (10-37); BILIRUBIN,TOTAL 0.4 MG/DL (0.1-1.0); BLOOD UREA NITROGEN 13 MG/DL (7-18); CALCIUM 8.6 MG/DL (8.5-10.1); CHLORIDE 107 MMOL/L (99-107); CREATININE 0.93 MG/DL (0.40-0.90); GLUCOSE 113 MG/DL (70-104); LIPASE < 50 U/L (73-393); POTASSIUM 3.7 MMOL/L (3.5-5.1); SODIUM 142 MMOL/L (135-145); TOTAL CARBON DIOXIDE 23.2 MMOL/L (24-32); TOTAL PROTEIN 7.3 G/DL (6.4-8.2); eGFR 66 ML/MIN
[2019-10-10 10:33] VITALS: BP 152/110
[2019-10-10] MEDS ORDERED: LORazepam 2 mg/ml vial IV ONE (10:35)
--- NOTE | 2019-10-10 10:48 | NUR ---
Patient very distressed; demonstrated incoherent speech x2 mins while RN at was at bedside. No other neurological defecit noted. EDMD Rafaela aware.
--- NOTE | 2019-10-10 10:57 | NUR ---
Patient tolerated fluid challenge
== END 2019-10-10 11:21 | disposition home or self-care (01) ==
LOC: ER 07:12
DX: R10.84 Generalized abdominal pain (principal); R11.2 Nausea with vomiting, unspecified; E66.01 Morbid (severe) obesity due to excess calories; F12.90 Cannabis use, unspecified, uncomplicated; J45.909 Unspecified asthma, uncomplicated; M19.90 Unspecified osteoarthritis, unspecified site; G89.29 Other chronic pain; Z87.442 Personal history of urinary calculi; Z90.710 Acquired absence of both cervix and uterus; Z88.0 Allergy status to penicillin; Z88.6 Allergy status to analgesic agent; Z88.5 Allergy status to narcotic agent; Z88.1 Allergy status to other antibiotic agents
CPT/HCPCS: 36415; 80053; 83690; 85025; 96361; 96372; 96374; 96375; 99284; J1200; J1630; J2060; J2405; J7030

== ENCOUNTER 2019-10-22 12:10 | Emergency (ER) | payer MEDICAID ==
[~2019-10-22] VITALS: Ht 157.5 cm; Wt 132.0 kg
[~2019-10-22 12:10] MED LIST changes: -ARIP10TA15 PO; -ESZO3TAB66 PO; -METR-159 PO
[2019-10-22 12:48] LABS: URINE HCG NEGATIVE (NEG)
[2019-10-22 13:03] LABS: BASOPHILS # (AUTO) 0.1 X10'3 (0-0.2); EOSINOPHILS # (AUTO) 0.1 X10'3 (0-0.9); EOSINOPHILS % (AUTO) 0.8 % (0-6); HEMATOCRIT 42.3 % (35.0-45.0); HEMOGLOBIN 14.2 g/dl (12.0-16.0); LYMPHOCYTES % (AUTO) 11.2 % (21-51); MEAN CORPUSCULAR HEMOGLOBIN 28.6 PG (27.0-31.0); MEAN CORPUSCULAR HGB CONC 33.5 g/dL (33.0-36.5); MEAN CORPUSCULAR VOLUME 85.2 FL (78-98); MEAN PLATELET VOLUME 8.9 FL (7.4-10.4); MONOCYTES # (AUTO) 0.3 X10'3 (0-0.9); MONOCYTES % (AUTO) 3.2 % (2-12); NEUTROPHILS # (AUTO) 7.6 X10'3 (1.8-7.7); NEUTROPHILS % (AUTO) 83.8 % (42-75); PLATELET COUNT 323 X10'3 (140-440); RED BLOOD COUNT 4.97 X10'6 (4.20-5.60); RED CELL DISTRIBUTION WIDTH 13.7 % (11.5-14.5)
[2019-10-22] MEDS ORDERED: ketorolac tromethamine 15mg/ml inj. IV ONE (13:05)
[2019-10-22] MEDS ORDERED: normal saline 1000ML IV soln IVB ONE (13:05)
[2019-10-22] MEDS ORDERED: diphenhydrAMINE 50 mg/ml inj IV ONE (13:05)
[2019-10-22] MEDS ORDERED: proCHLORperazine 10 MG/2 ml inj IV ONE (13:05)
[2019-10-22 13:10] LABS: ALANINE AMINOTRANSFERASE 28 U/L (12-78); ALBUMIN/GLOBULIN RATIO 1.1 (1.1-1.5); ALKALINE PHOSPHATASE 64 IU/L (46-116); ANION GAP 10 (8-16); ASPARTATE AMINO TRANSFERASE 17 U/L (10-37); BILIRUBIN,TOTAL 0.3 MG/DL (0.1-1.0); BLOOD UREA NITROGEN 18 MG/DL (7-18); BUN/CREATININE RATIO 18.2 (6.6-38.0); CALCIUM 8.8 MG/DL (8.5-10.1); CHLORIDE 108 MMOL/L (99-107); CREATININE 0.99 MG/DL (0.40-0.90); GLUCOSE 110 MG/DL (70-104); LIPASE < 50 U/L (73-393); POTASSIUM 4.4 MMOL/L (3.5-5.1); SODIUM 141 MMOL/L (135-145); TOTAL CARBON DIOXIDE 23.1 MMOL/L (24-32); TOTAL PROTEIN 7.8 G/DL (6.4-8.2); eGFR 62 ML/MIN
[2019-10-22] MEDS ORDERED: ONDA4TAB6 PO (14:29)
[2019-10-22] MEDS ORDERED: METR-159 PO (14:29)
[2019-10-22 14:52] LABS: CLARITY,URINE CLEAR (Clear); COLOR,URINE YELLOW (Yellow); GLUCOSE, URINE NEGATIVE (Neg); KETONES,URINE NEGATIVE (Neg); LEUKOCYTE ESTERASE ,URINE NEGATIVE (Neg); NITRITES, URINE NEGATIVE (Neg); OCCULT BLOOD,URINE TRACE-INTACT (Neg); PH,URINE 6.5 (4.8-8.0); PROTEIN,URINE NEGATIVE (Neg); UROBILINOGEN,URINE 0.2 E.U/dL (0.2-1.0)
[2019-10-22 14:53] LABS: UA COLLECTION TYPE CLN CATCH MIDSTREAM
[2019-10-22 14:59] LABS: BACTERIA,URINE NONE SEEN /HPF (Neg); SQUAMOUS EPITHELIAL CELL,UR FEW /LPF (FEW); WBC,URINE NONE SEEN /HPF (0-4)
[2019-10-22 15:00] LABS: RBC,URINE 0-2 /HPF (0-2)
[2019-10-22 15:02] VITALS: BP 159/96
== END 2019-10-22 15:04 | disposition home or self-care (01) ==
LOC: ER 12:11
DX: R10.84 Generalized abdominal pain (principal); R11.2 Nausea with vomiting, unspecified; R19.7 Diarrhea, unspecified; F12.90 Cannabis use, unspecified, uncomplicated; J45.909 Unspecified asthma, uncomplicated; G89.29 Other chronic pain; Z87.442 Personal history of urinary calculi; Z90.710 Acquired absence of both cervix and uterus; Z88.0 Allergy status to penicillin; Z88.6 Allergy status to analgesic agent; Z88.5 Allergy status to narcotic agent; Z88.1 Allergy status to other antibiotic agents; Z79.899 Other long term (current) drug therapy
CPT/HCPCS: 36415; 80053; 81001; 81025; 83690; 85025; 96361; 96374; 96375; 99284; J0780; J1200; J1885; J7030

== ENCOUNTER 2020-01-01 11:39 | Emergency (ER) | payer MEDICAID ==
[~2020-01-01] VITALS: Ht 157.5 cm; Wt 121.0 kg
[~2020-01-01 11:39] MED LIST changes: -CIPR-230 PO
[2020-01-01 12:41] LABS: BASOPHILS # (AUTO) 0.1 X10'3 (0-0.2); BASOPHILS % (AUTO) 0.8 % (0-1); EOSINOPHILS # (AUTO) 0.3 X10'3 (0-0.9); EOSINOPHILS % (AUTO) 4.3 % (0-6); HEMATOCRIT 42.5 % (35.0-45.0); LYMPHOCYTES % (AUTO) 31.1 % (21-51); MEAN CORPUSCULAR HEMOGLOBIN 28.2 PG (27.0-31.0); MEAN CORPUSCULAR VOLUME 85.4 FL (78-98); MEAN PLATELET VOLUME 8.5 FL (7.4-10.4); MONOCYTES # (AUTO) 0.3 X10'3 (0-0.9); MONOCYTES % (AUTO) 5.1 % (2-12); NEUTROPHILS # (AUTO) 3.8 X10'3 (1.8-7.7); NEUTROPHILS % (AUTO) 58.7 % (42-75); PLATELET COUNT 287 X10'3 (140-440); RED BLOOD COUNT 4.98 X10'6 (4.20-5.60); RED CELL DISTRIBUTION WIDTH 14.1 % (11.5-14.5); WHITE BLOOD COUNT 6.4 X10'3 (4.5-11.0)
[2020-01-01 12:42] LABS: CLARITY,URINE SLIGHTLY CLOUDY (Clear); COLOR,URINE STRAW (Yellow); GLUCOSE, URINE NEGATIVE (Neg); KETONES,URINE NEGATIVE (Neg); LEUKOCYTE ESTERASE ,URINE NEGATIVE (Neg); NITRITES, URINE NEGATIVE (Neg); OCCULT BLOOD,URINE NEGATIVE (Neg); PH,URINE 7.5 (4.8-8.0); PROTEIN,URINE NEGATIVE (Neg); UROBILINOGEN,URINE 0.2 E.U/dL (0.2-1.0)
[2020-01-01 12:43] LABS: URINE HCG NEGATIVE (NEG)
[2020-01-01 12:51] LABS: UA COLLECTION TYPE CLN CATCH MIDSTREAM
[2020-01-01 12:52] LABS: SQUAMOUS EPITHELIAL CELL,UR FEW /LPF (FEW)
[2020-01-01 12:53] LABS: ALANINE AMINOTRANSFERASE 27 U/L (12-78); ALBUMIN 3.8 G/DL (3.4-5.0); ALKALINE PHOSPHATASE 88 IU/L (46-116); AMYLASE 29 U/L (25-115); ANION GAP 6 (8-16); ASPARTATE AMINO TRANSFERASE 19 U/L (10-37); BILIRUBIN,TOTAL 0.2 MG/DL (0.1-1.0); BLOOD UREA NITROGEN 19 MG/DL (7-18); BUN/CREATININE RATIO 18.1 (6.6-38.0); CALCIUM 9.6 MG/DL (8.5-10.1); CHLORIDE 105 MMOL/L (99-107); CREATININE 1.05 MG/DL (0.40-0.90); GLUCOSE 88 MG/DL (70-104); LIPASE < 50 U/L (73-393); POTASSIUM 4.2 MMOL/L (3.5-5.1); SODIUM 141 MMOL/L (135-145); TOTAL CARBON DIOXIDE 29.8 MMOL/L (24-32); TOTAL PROTEIN 7.8 G/DL (6.4-8.2); eGFR 57 ML/MIN
[2020-01-01 12:58] LABS: BACTERIA,URINE FEW /HPF (Neg); STARCH,URINE FEW /HPF (NEGATIVE)
[2020-01-01 13:00] LABS: RBC,URINE 0-2 /HPF (0-2); WBC,URINE 0-4 /HPF (0-4)
--- NOTE | 2020-01-01 14:28 | NUR ---
Patient over to OF1 with Ultrasound and will be returning to room 17, when completed.
[2020-01-01 16:01] VITALS: BP 144/86
[2020-01-01] MEDS ORDERED: HYDR-3965 PO (16:53)
[2020-01-01] MEDS ORDERED: ONDA4TAB6 PO (16:53)
[2020-01-01] MEDS ORDERED: FLO0.4C PO (16:53)
== END 2020-01-01 17:08 | disposition home or self-care (01) ==
LOC: ER 11:39
DX: N20.1 Calculus of ureter (principal); R39.15 Urgency of urination; R35.0 Frequency of micturition; J45.909 Unspecified asthma, uncomplicated; G89.29 Other chronic pain; M19.90 Unspecified osteoarthritis, unspecified site; F12.90 Cannabis use, unspecified, uncomplicated; Z86.69 Personal history of other diseases of the nervous system and sense organs; Z87.442 Personal history of urinary calculi; Z90.710 Acquired absence of both cervix and uterus; Z98.890 Other specified postprocedural states; Z90.721 Acquired absence of ovaries, unilateral; Z88.0 Allergy status to penicillin; Z88.5 Allergy status to narcotic agent; Z88.1 Allergy status to other antibiotic agents; Z88.8 Allergy status to other drugs, medicaments and biological substances; Z79.899 Other long term (current) drug therapy
CPT/HCPCS: 36415; 74176; 76830; 76856; 80053; 81001; 81025; 82150; 83690; 85025; 99285

== ENCOUNTER 2020-02-27 11:28 | Emergency (ER) | payer MEDICAID ==
[~2020-02-27] VITALS: Ht 157.5 cm; Wt 129.6 kg
[2020-02-27] MEDS ORDERED: normal saline 1000ML IV soln IVB ONE (11:50)
[2020-02-27] MEDS ORDERED: morphine 4 MG/ML inj SYRINge IV PRN (11:50)
[2020-02-27] MEDS ORDERED: proCHLORperazine 10 MG/2 ml inj IV ONE (11:50)
[2020-02-27] MEDS ORDERED: LORazepam 2 mg/ml vial IV ONE (11:55)
[2020-02-27] MEDS ORDERED: fentaNYL/PF 50MCG/1 ML 2ML syringe IV ONE (12:10)
[2020-02-27 12:52] LABS: BASOPHILS # (AUTO) 0.1 X10'3 (0-0.2); BASOPHILS % (AUTO) 0.6 % (0-1); EOSINOPHILS # (AUTO) 0.1 X10'3 (0-0.9); EOSINOPHILS % (AUTO) 1.5 % (0-6); HEMATOCRIT 40.3 % (35.0-45.0); HEMOGLOBIN 13.4 g/dl (12.0-16.0); LYMPHOCYTES # (AUTO) 0.9 X10'3 (1.1-4.8); LYMPHOCYTES % (AUTO) 9.8 % (21-51); MEAN CORPUSCULAR HEMOGLOBIN 28.2 PG (27.0-31.0); MEAN CORPUSCULAR HGB CONC 33.1 g/dL (33.0-36.5); MEAN CORPUSCULAR VOLUME 85.2 FL (78-98); MEAN PLATELET VOLUME 8.4 FL (7.4-10.4); MONOCYTES # (AUTO) 0.3 X10'3 (0-0.9); MONOCYTES % (AUTO) 2.8 % (2-12); NEUTROPHILS # (AUTO) 7.9 X10'3 (1.8-7.7); NEUTROPHILS % (AUTO) 85.3 % (42-75); PLATELET COUNT 300 X10'3 (140-440); RED BLOOD COUNT 4.73 X10'6 (4.20-5.60); RED CELL DISTRIBUTION WIDTH 14.1 % (11.5-14.5); WHITE BLOOD COUNT 9.3 X10'3 (4.5-11.0)
[2020-02-27 13:07] LABS: ALANINE AMINOTRANSFERASE 27 U/L (12-78); ALBUMIN 3.7 G/DL (3.4-5.0); ALBUMIN/GLOBULIN RATIO 0.9 (1.1-1.5); ALKALINE PHOSPHATASE 83 IU/L (46-116); ANION GAP 8 (8-16); ASPARTATE AMINO TRANSFERASE 14 U/L (10-37); BILIRUBIN,TOTAL 0.2 MG/DL (0.1-1.0); BLOOD UREA NITROGEN 20 MG/DL (7-18); BUN/CREATININE RATIO 19.8 (6.6-38.0); CALCIUM 9.2 MG/DL (8.5-10.1); CHLORIDE 109 MMOL/L (99-107); CREATININE 1.01 MG/DL (0.40-0.90); GLUCOSE 124 MG/DL (70-104); LIPASE < 50 U/L (73-393); POTASSIUM 4.1 MMOL/L (3.5-5.1); SODIUM 143 MMOL/L (135-145); TOTAL CARBON DIOXIDE 25.9 MMOL/L (24-32); TOTAL PROTEIN 7.8 G/DL (6.4-8.2); eGFR 60 ML/MIN
[2020-02-27] MEDS ORDERED: ketorolac trometh. 30mg/ml inj. IV ONE (13:40)
[2020-02-27 14:46] LABS: CLARITY,URINE CLOUDY (Clear); COLOR,URINE STRAW (Yellow); GLUCOSE, URINE NEGATIVE (Neg); KETONES,URINE NEGATIVE (Neg); LEUKOCYTE ESTERASE ,URINE TRACE (Neg); NITRITES, URINE NEGATIVE (Neg); OCCULT BLOOD,URINE LARGE (Neg); PROTEIN,URINE 100 mg/dl (Neg); UROBILINOGEN,URINE 0.2 E.U/dL (0.2-1.0)
[2020-02-27 14:50] LABS: UA COLLECTION TYPE CLN CATCH MIDSTREAM
[2020-02-27 14:57] LABS: MUCUS STRANDS NONE SEEN /LPF (Neg); SQUAMOUS EPITHELIAL CELL,UR FEW /LPF (FEW); TRANSITIONAL EPI CELLS,URINE FEW /HPF
[2020-02-27 14:58] LABS: AMORPHOUS PHOSPHATES 3+; BACTERIA,URINE NONE SEEN /HPF (Neg); RBC,URINE TNTC /HPF (0-2)
--- NOTE | 2020-02-27 15:09 | NUR ---
CALLED JENNIFER TO PICK PT UP SHE IS DC READY. INFORMED THAT JENNIFER IS AT WORK AND SHE IS NOT ABLE TO DIRECTOR OF ONLINE MERCHANDISING PT. JENNIFER STATES WE USUALLY JUST SEND HER HOME IN A CAB" CAB CALLED FOR PT
[2020-02-27 15:18] VITALS: BP 149/88
== END 2020-02-27 15:20 | disposition home or self-care (01) ==
LOC: ER 11:28
DX: R10.84 Generalized abdominal pain (principal); R11.10 Vomiting, unspecified; J45.909 Unspecified asthma, uncomplicated; G89.29 Other chronic pain; M19.90 Unspecified osteoarthritis, unspecified site; F12.90 Cannabis use, unspecified, uncomplicated; Z86.69 Personal history of other diseases of the nervous system and sense organs; Z87.442 Personal history of urinary calculi; Z90.710 Acquired absence of both cervix and uterus; Z90.721 Acquired absence of ovaries, unilateral; Z98.890 Other specified postprocedural states; Z88.0 Allergy status to penicillin; Z88.6 Allergy status to analgesic agent; Z88.5 Allergy status to narcotic agent; Z88.1 Allergy status to other antibiotic agents; Z79.899 Other long term (current) drug therapy
CPT/HCPCS: 36415; 80053; 81001; 83690; 85025; 87088; 96374; 96375; 99284; J0780; J1885; J2060; J3010; J7030

== ENCOUNTER 2020-02-29 00:42 | Inpatient (IN) | payer MEDICAID ==
[~2020-02-29] VITALS: Ht 157.5 cm; Wt 129.6 kg
[2020-02-29 01:12] LABS: URINE HCG NEGATIVE (NEG)
[2020-02-29 01:25] LABS: ALANINE AMINOTRANSFERASE 30 U/L (12-78); ALBUMIN 3.7 G/DL (3.4-5.0); ALBUMIN/GLOBULIN RATIO 0.9 (1.1-1.5); ALKALINE PHOSPHATASE 71 IU/L (46-116); ANION GAP 10 (8-16); ASPARTATE AMINO TRANSFERASE 24 U/L (10-37); BASOPHILS # (AUTO) 0.1 X10'3 (0-0.2); BASOPHILS % (AUTO) 0.6 % (0-1); BILIRUBIN,TOTAL 0.3 MG/DL (0.1-1.0); BLOOD UREA NITROGEN 16 MG/DL (7-18); BUN/CREATININE RATIO 14.7 (6.6-38.0); CHLORIDE 105 MMOL/L (99-107); CREATININE 1.09 MG/DL (0.40-0.90); EOSINOPHILS # (AUTO) 0.3 X10'3 (0-0.9); EOSINOPHILS % (AUTO) 3.7 % (0-6); GLUCOSE 102 MG/DL (70-104); HEMATOCRIT 38.1 % (35.0-45.0); HEMOGLOBIN 12.7 g/dl (12.0-16.0); LIPASE 75 U/L (73-393); LYMPHOCYTES % (AUTO) 22.5 % (21-51); MEAN CORPUSCULAR HEMOGLOBIN 28.8 PG (27.0-31.0); MEAN CORPUSCULAR HGB CONC 33.4 g/dL (33.0-36.5); MEAN CORPUSCULAR VOLUME 86.1 FL (78-98); MEAN PLATELET VOLUME 8.4 FL (7.4-10.4); MONOCYTES # (AUTO) 0.5 X10'3 (0-0.9); MONOCYTES % (AUTO) 5.4 % (2-12); NEUTROPHILS % (AUTO) 67.8 % (42-75); PLATELET COUNT 276 X10'3 (140-440); POTASSIUM 3.5 MMOL/L (3.5-5.1); RED BLOOD COUNT 4.42 X10'6 (4.20-5.60); RED CELL DISTRIBUTION WIDTH 14.1 % (11.5-14.5); SODIUM 141 MMOL/L (135-145); TOTAL CARBON DIOXIDE 26.2 MMOL/L (24-32); TOTAL PROTEIN 7.6 G/DL (6.4-8.2); WHITE BLOOD COUNT 8.9 X10'3 (4.5-11.0); eGFR 55 ML/MIN
[2020-02-29 01:26] LABS: CLARITY,URINE CLOUDY (Clear); COLOR,URINE YELLOW (Yellow); GLUCOSE, URINE NEGATIVE (Neg); KETONES,URINE NEGATIVE (Neg); LEUKOCYTE ESTERASE ,URINE SMALL (Neg); NITRITES, URINE NEGATIVE (Neg); OCCULT BLOOD,URINE LARGE (Neg); PH,URINE 6.5 (4.8-8.0); PROTEIN,URINE 30 mg/dl (Neg); UROBILINOGEN,URINE 0.2 E.U/dL (0.2-1.0)
[2020-02-29] MEDS ORDERED: morphine 4 MG/ML inj SYRINge IV STA (01:26)
[2020-02-29] MEDS ORDERED: ondansetron/PF 4mg/2ml inj IV STA (01:26)
--- NOTE | 2020-02-29 01:27 | NUR ---
infomred that the pt is crying in pain and holding her abd. May I give 4/ and he stated yes, so order placed. Primary RN made aware.
[2020-02-29] MEDS ORDERED: ketorolac trometh. 30mg/ml inj. IV ONE (01:30)
[2020-02-29] MEDS ORDERED: diazepam inj 5 MG/ML inj. IV ONE (01:30)
[2020-02-29 02:07] LABS: UA COLLECTION TYPE CLN CATCH MIDSTREAM
[2020-02-29 02:14] LABS: MUCUS STRANDS FEW /LPF (Neg); RBC,URINE 50-100 /HPF (0-2); SQUAMOUS EPITHELIAL CELL,UR FEW /LPF (FEW)
[2020-02-29 02:15] LABS: BACTERIA,URINE FEW /HPF (Neg)
--- NOTE | 2020-02-29 02:28 | NUR ---
patient stated that her nausea has continued. Informed of this information.
[2020-02-29] MEDS ORDERED: ondansetron/PF 4mg/2ml inj IV ONE (02:35)
--- NOTE | 2020-02-29 02:45 | NUR ---
Verified with new order for Zofran since patient had just received a dose 1 hour prior with no relief. confirmed order
--- NOTE | 2020-02-29 03:14 | NUR ---
Patient continues to c/o nausea which she states is what makes her pain worse. Will ask MD about a different antiemetic
[2020-02-29] MEDS ORDERED: proCHLORperazine 10 MG/2 ml inj IV ONE (03:15)
[2020-02-29] MEDS ORDERED: fentaNYL/PF 50MCG/1 ML 2ML syringe IV ONE (03:15)
[2020-02-29] MEDS ORDERED: proCHLORperazine 10 MG/2 ml inj IV PRN (03:20)
[2020-02-29] MEDS ORDERED: potassium CL 10mEq/100ml bag 100 ML IV PRN ×2 (03:20)
[2020-02-29] MEDS ORDERED: HYDROmorphone 1 mg/ml syringe IV PRN (03:20)
[2020-02-29] MEDS ORDERED: magnesium hydroxide 30ml (MOM) UD suspension PO PRN (03:20)
[2020-02-29] MEDS ORDERED: diazepam inj 5 MG/ML inj. IV PRN (03:20)
[2020-02-29] MEDS ORDERED: acetaminophen 325mg tablet PO PRN (03:20)
[2020-02-29] MEDS ORDERED: mag hydrox/Alum hydrox/simeth 30ml oral suspension PO PRN (03:20)
[2020-02-29] MEDS ORDERED: ondansetron/PF 4mg/2ml inj IV PRN (03:20)
[2020-02-29] MEDS ORDERED: potassium Cl 20 mEq SR tablet PO PRN ×2 (03:20)
[2020-02-29] MEDS ORDERED: AMIT25TA9 PO (03:35)
[2020-02-29] MEDS ORDERED: ALPR2TAB7 PO (03:35)
[2020-02-29] MEDS ORDERED: FLO0.4C PO (03:35)
[2020-02-29] MEDS ORDERED: FLUT1AER4 INH (03:35)
[2020-02-29] MEDS ORDERED: FLUT16SP26 NAS (03:35)
[2020-02-29] MEDS ORDERED: PER5325T PO (03:35)
[2020-02-29] MEDS ORDERED: METH500T6 PO (03:35)
[2020-02-29] MEDS ORDERED: CETI10TA14 PO (03:35)
[2020-02-29 06:00] VITALS: BP 127/64
--- NOTE | 2020-02-29 06:17 | NUR ---
Problems reprioritized. Patient report given, questions answered & plan of care reviewed with ERNESTIEN Loyola.
[2020-02-29] MEDS ORDERED: FLUTICASONE INH SCH (08:00)
[2020-02-29] MEDS ORDERED: K and/or MAG REPLACEMENT MC SCH (08:00)
[2020-02-29] MEDS ORDERED: CefTRIAXone/D5W-Rocephin 1gm 50 ML IV SCH (08:00)
[2020-02-29] MEDS ORDERED: SALMETEROL INH SCH (08:00)
[2020-02-29] MEDS ORDERED: albuterol 2.5 MG/3 ML nebule NEB SCH (09:00)
[2020-02-29] MEDS ORDERED: budesonide 0.5mg/2ml UD nebule IH SCH (09:00)
[2020-02-29 10:00] VITALS: BP 141/88
[2020-02-29] MEDS ORDERED: pneumococcal 23-VAL P-sac vacc 25 mcg/0.5ml vial IMVAC ONE (10:00)
--- NOTE | 2020-02-29 12:21 | NUR ---
PAGER ID: [phone] MESSAGE: [phone] Bruce Martinez- patient having extreme stomach pain, can we have pain medication. Milla [phone]
[2020-02-29] MEDS ORDERED: HYDROcodone/acetaminophen 5mg/325mg tablet PO ONE (12:40)
[2020-02-29] MEDS ORDERED: pantoprazole 40mg Tablet.DR PO SCH (12:40)
[2020-02-29] MEDS ORDERED: PANT40TA4 PO (14:40)
[2020-02-29] MEDS ORDERED: HYDR-4383 PO (14:40)
[2020-02-29] MEDS ORDERED: CEFD300C3 PO (14:40)
--- NOTE | 2020-02-29 15:29 | NUR ---
Patient stable for discharge, PIV removed cannula intact. Belongings sent home with patient. Patient sent home in an uber.
[2020-02-29] MEDS ORDERED: amitriptyline 25mg tablet PO SCH (21:00)
== END 2020-02-29 15:25 | disposition home or self-care (01) | DRG 463 ==
LOC: ER 00:43 → ED HOLD 03:16 → ORTHO 4S 04:10
PROVIDERS: ADMIT Family Medicine; ATTEND Family Medicine
DX: N39.0 Urinary tract infection, site not specified (principal); E66.01 Morbid (severe) obesity due to excess calories; F11.10 Opioid abuse, uncomplicated; F12.90 Cannabis use, unspecified, uncomplicated; G89.29 Other chronic pain; R31.9 Hematuria, unspecified; M19.90 Unspecified osteoarthritis, unspecified site; F41.8 Other specified anxiety disorders; J45.909 Unspecified asthma, uncomplicated; Z87.442 Personal history of urinary calculi; Z90.710 Acquired absence of both cervix and uterus; Z90.721 Acquired absence of ovaries, unilateral; Z68.43 Body mass index [BMI] 50.0-59.9, adult; Z28.21 Immunization not carried out because of patient refusal; Z88.0 Allergy status to penicillin; Z88.5 Allergy status to narcotic agent; Z88.8 Allergy status to other drugs, medicaments and biological substances; Z79.899 Other long term (current) drug therapy
CPT/HCPCS: 36415; 74176; 80053; 81001; 81025; 83690; 85025; 87081; 87088; 90732; 99285; G0378; J0696; J0780; J1885; J2270; J2405; J3010; J3360; J7626

== ENCOUNTER 2020-03-03 00:29 | Emergency (ER) | payer MEDICAID ==
[~2020-03-03] VITALS: Ht 157.5 cm; Wt 115.0 kg
[~2020-03-03 00:29] MED LIST changes: +ALPR2TAB7 PO; +AMIT25TA9 PO; +CEFD300C3 PO; +CETI10TA14 PO; -DIAZ2TAB3 PO; -DIPH25CA83 PO; +FLO0.4C PO; +FLUT16SP26 NAS; +FLUT1AER4 INH; +HYDR-4383 PO; -METH500T PO; +METH500T6 PO; -ONDA4TAB12 PO; -ONDA4TAB6 PO; -ONDA8TAB6 PO; +PANT40TA4 PO; +PER5325T PO
[2020-03-03] MEDS ORDERED: normal saline 1000ML IV soln IVB ONE (00:40)
[2020-03-03] MEDS ORDERED: ketorolac trometh. 30mg/ml inj. IV ONE (00:40)
[2020-03-03] MEDS ORDERED: HYDROmorphone 1 mg/ml syringe IV ONE (00:45)
[2020-03-03 00:58] LABS: BASOPHILS # (AUTO) 0.1 X10'3 (0-0.2); BASOPHILS % (AUTO) 0.7 % (0-1); EOSINOPHILS # (AUTO) 0.2 X10'3 (0-0.9); EOSINOPHILS % (AUTO) 1.4 % (0-6); HEMATOCRIT 43.1 % (35.0-45.0); HEMOGLOBIN 14.5 g/dl (12.0-16.0); LYMPHOCYTES # (AUTO) 1.3 X10'3 (1.1-4.8); MEAN CORPUSCULAR HGB CONC 33.5 g/dL (33.0-36.5); MEAN CORPUSCULAR VOLUME 86.5 FL (78-98); MEAN PLATELET VOLUME 8.4 FL (7.4-10.4); MONOCYTES # (AUTO) 0.5 X10'3 (0-0.9); NEUTROPHILS # (AUTO) 9.5 X10'3 (1.8-7.7); NEUTROPHILS % (AUTO) 82.9 % (42-75); PLATELET COUNT 348 X10'3 (140-440); RED BLOOD COUNT 4.99 X10'6 (4.20-5.60); RED CELL DISTRIBUTION WIDTH 14.1 % (11.5-14.5); WHITE BLOOD COUNT 11.4 X10'3 (4.5-11.0)
[2020-03-03 01:13] LABS: PARTIAL THROMBOPLASTIN TIME 27 SECONDS (22-32)
[2020-03-03 01:23] LABS: ALANINE AMINOTRANSFERASE 38 U/L (12-78); ALBUMIN 4.3 G/DL (3.4-5.0); ALKALINE PHOSPHATASE 78 IU/L (46-116); ANION GAP 9 (8-16); ASPARTATE AMINO TRANSFERASE 19 U/L (10-37); BILIRUBIN,TOTAL 0.3 MG/DL (0.1-1.0); BLOOD UREA NITROGEN 21 MG/DL (7-18); BUN/CREATININE RATIO 15.1 (6.6-38.0); CALCIUM 9.6 MG/DL (8.5-10.1); CHLORIDE 105 MMOL/L (99-107); CREATININE 1.39 MG/DL (0.40-0.90); GLUCOSE 142 MG/DL (70-104); MAGNESIUM 1.8 MG/DL (1.5-2.4); SODIUM 139 MMOL/L (135-145); TOTAL CARBON DIOXIDE 25.3 MMOL/L (24-32); TOTAL PROTEIN 8.6 G/DL (6.4-8.2); eGFR 42 ML/MIN
[2020-03-03 02:33] LABS: CLARITY,URINE CLEAR (Clear); COLOR,URINE YELLOW (Yellow); GLUCOSE, URINE NEGATIVE (Neg); KETONES,URINE TRACE mg/dl (Neg); LEUKOCYTE ESTERASE ,URINE SMALL (Neg); NITRITES, URINE NEGATIVE (Neg); OCCULT BLOOD,URINE LARGE (Neg); PROTEIN,URINE 100 mg/dl (Neg); UROBILINOGEN,URINE 0.2 E.U/dL (0.2-1.0)
[2020-03-03 02:34] LABS: UA COLLECTION TYPE CLN CATCH MIDSTREAM
[2020-03-03 02:37] LABS: BACTERIA,URINE 1+ /HPF (Neg); RBC,URINE 0-2 /HPF (0-2); SQUAMOUS EPITHELIAL CELL,UR MODERATE /LPF (FEW); WBC,URINE 20-30 /HPF (0-4)
[2020-03-03] MEDS ORDERED: CefTRIAXone/D5W-Rocephin 1gm 50 ML IV ONE (02:50)
[2020-03-03] MEDS ORDERED: CefTRIAXone 1000mg IM Kit (w/lidocaine diluent) IM ONE (03:05)
[2020-03-03 03:14] VITALS: BP 136/81
== END 2020-03-03 03:16 | disposition home or self-care (01) ==
LOC: ER 00:30
DX: N39.0 Urinary tract infection, site not specified (principal); N18.9 Chronic kidney disease, unspecified; E86.0 Dehydration; N23 Unspecified renal colic; F12.90 Cannabis use, unspecified, uncomplicated; J45.909 Unspecified asthma, uncomplicated; M19.90 Unspecified osteoarthritis, unspecified site; G89.29 Other chronic pain; Z98.890 Other specified postprocedural states; Z90.710 Acquired absence of both cervix and uterus; Z90.721 Acquired absence of ovaries, unilateral; Z86.69 Personal history of other diseases of the nervous system and sense organs; Z88.0 Allergy status to penicillin; Z88.5 Allergy status to narcotic agent; Z88.6 Allergy status to analgesic agent; Z88.1 Allergy status to other antibiotic agents; Z79.899 Other long term (current) drug therapy
CPT/HCPCS: 36415; 76775; 80053; 81001; 83605; 83735; 84145; 85025; 85610; 85730; 87040; 87088; 96361; 96372; 96374; 96375; 99285; J0696; J1170; J1885; J7030

== ENCOUNTER 2020-07-08 22:24 | Emergency (ER) | payer MEDICAID ==
[~2020-07-08] VITALS: Ht 157.5 cm; Wt 127.3 kg
[~2020-07-08 22:24] MED LIST changes: -CEFD300C3 PO; -PANT40TA4 PO; +PANT40TA54 PO
[2020-07-08 22:27] VITALS: BP 140/112
== END 2020-07-08 23:03 | disposition home or self-care (01) ==
LOC: ER 22:25
DX: R50.9 Fever, unspecified (principal); R53.83 Other fatigue; Z20.828 Contact with and (suspected) exposure to other viral communicable diseases; M19.90 Unspecified osteoarthritis, unspecified site; G89.29 Other chronic pain; F12.90 Cannabis use, unspecified, uncomplicated; J45.909 Unspecified asthma, uncomplicated; Z86.69 Personal history of other diseases of the nervous system and sense organs; Z87.442 Personal history of urinary calculi; Z87.440 Personal history of urinary (tract) infections; Z90.710 Acquired absence of both cervix and uterus; Z98.890 Other specified postprocedural states; Z88.0 Allergy status to penicillin; Z88.8 Allergy status to other drugs, medicaments and biological substances; Z88.5 Allergy status to narcotic agent; Z79.899 Other long term (current) drug therapy
CPT/HCPCS: 36415; 87635; 99283

== ENCOUNTER 2020-08-28 14:28 | Emergency (ER) | payer MEDICAID ==
[~2020-08-28] VITALS: Ht 157.5 cm; Wt 113.0 kg
[2020-08-28] MEDS ORDERED: normal saline 1000ML IV soln IVB ONE (15:10)
--- NOTE | 2020-08-28 15:13 | NUR ---
pt ambulating to br to void. specimen cu
--- NOTE | 2020-08-28 15:13 | NUR ---
specimen cup given for ua
[2020-08-28 15:29] LABS: BASOPHILS % (AUTO) 0.4 % (0-1); EOSINOPHILS # (AUTO) 0.1 X10'3 (0-0.9); EOSINOPHILS % (AUTO) 0.5 % (0-6); HEMATOCRIT 41.2 % (35.0-45.0); HEMOGLOBIN 13.5 g/dl (12.0-16.0); LYMPHOCYTES # (AUTO) 1.1 X10'3 (1.1-4.8); LYMPHOCYTES % (AUTO) 11.1 % (21-51); MEAN CORPUSCULAR HEMOGLOBIN 28.1 PG (27.0-31.0); MEAN CORPUSCULAR HGB CONC 32.8 g/dL (33.0-36.5); MEAN CORPUSCULAR VOLUME 85.8 FL (78-98); MEAN PLATELET VOLUME 8.9 FL (7.4-10.4); MONOCYTES # (AUTO) 0.3 X10'3 (0-0.9); MONOCYTES % (AUTO) 2.6 % (2-12); NEUTROPHILS # (AUTO) 8.4 X10'3 (1.8-7.7); NEUTROPHILS % (AUTO) 85.4 % (42-75); PLATELET COUNT 329 X10'3 (140-440); RED CELL DISTRIBUTION WIDTH 13.9 % (11.5-14.5); WHITE BLOOD COUNT 9.9 X10'3 (4.5-11.0)
[2020-08-28 15:39] LABS: ALANINE AMINOTRANSFERASE 38 U/L (12-78); ALBUMIN 4.1 G/DL (3.4-5.0); ALBUMIN/GLOBULIN RATIO 1.1 (1.1-1.5); ALKALINE PHOSPHATASE 75 IU/L (46-116); ANION GAP 12 (8-16); ASPARTATE AMINO TRANSFERASE 25 U/L (10-37); BILIRUBIN,TOTAL 0.3 MG/DL (0.1-1.0); BLOOD UREA NITROGEN 16 MG/DL (7-18); CALCIUM 9.3 MG/DL (8.5-10.1); CHLORIDE 109 MMOL/L (99-107); CREATININE 0.94 MG/DL (0.40-0.90); GLUCOSE 130 MG/DL (70-104); LIPASE < 50 U/L (73-393); SODIUM 145 MMOL/L (135-145); TOTAL CARBON DIOXIDE 24.2 MMOL/L (24-32); eGFR 65 ML/MIN
[2020-08-28 16:02] LABS: CLARITY,URINE TURBID (Clear); COLOR,URINE YELLOW (Yellow); GLUCOSE, URINE NEGATIVE (Neg); KETONES,URINE 15 mg/dl (Neg); LEUKOCYTE ESTERASE ,URINE NEGATIVE (Neg); NITRITES, URINE NEGATIVE (Neg); OCCULT BLOOD,URINE NEGATIVE (Neg); PROTEIN,URINE NEGATIVE (Neg); UROBILINOGEN,URINE 0.2 E.U/dL (0.2-1.0)
[2020-08-28 16:03] LABS: UA COLLECTION TYPE CLN CATCH MIDSTREAM
[2020-08-28 16:07] LABS: AMORPHOUS URATES 3+; BACTERIA,URINE FEW /HPF (Neg); MUCUS STRANDS FEW /LPF (Neg); RBC,URINE NONE SEEN /HPF (0-2); SQUAMOUS EPITHELIAL CELL,UR FEW /LPF (FEW); WBC,URINE NONE SEEN /HPF (0-4)
--- NOTE | 2020-08-28 16:31 | NUR ---
BACK FROM CT SCAN VIA WHEELCHAIR IN STABLE CONDITION.
[2020-08-28 18:06] VITALS: BP 143/91
== END 2020-08-28 18:08 | disposition home or self-care (01) ==
LOC: ER 14:29
DX: R10.84 Generalized abdominal pain (principal); R11.2 Nausea with vomiting, unspecified; J45.909 Unspecified asthma, uncomplicated; M19.90 Unspecified osteoarthritis, unspecified site; G89.29 Other chronic pain; F12.90 Cannabis use, unspecified, uncomplicated; Z87.440 Personal history of urinary (tract) infections; Z86.69 Personal history of other diseases of the nervous system and sense organs; Z87.442 Personal history of urinary calculi; Z90.710 Acquired absence of both cervix and uterus; Z98.890 Other specified postprocedural states; Z88.0 Allergy status to penicillin; Z88.8 Allergy status to other drugs, medicaments and biological substances; Z88.5 Allergy status to narcotic agent; Z88.1 Allergy status to other antibiotic agents; Z79.899 Other long term (current) drug therapy
CPT/HCPCS: 36415; 74176; 80053; 81001; 83690; 85025; 96360; 96361; 99284; J7030

== ENCOUNTER 2020-08-30 10:31 | Emergency (ER) | payer MEDICAID ==
[~2020-08-30] VITALS: Ht 157.5 cm; Wt 118.2 kg
[2020-08-30] MEDS ORDERED: normal saline 1000ML IV soln IVB ONE (10:55)
[2020-08-30] MEDS ORDERED: simethicone 80mg chew tab PO ONE (10:55)
[2020-08-30] MEDS ORDERED: ketorolac tromethamine 15mg/ml inj. IV ONE (10:55)
[2020-08-30] MEDS ORDERED: LORazepam 2 mg/ml vial IV ONE ×2 (10:55→12:00)
[2020-08-30] MEDS ORDERED: dicyclomine 10 MG capsule PO ONE (10:55)
--- NOTE | 2020-08-30 11:05 | NUR ---
PT STATES, I ONLY SMOKE POT TWICE A WEEK
[2020-08-30 11:06] LABS: BASOPHILS # (AUTO) 0.1 X10'3 (0-0.2); BASOPHILS % (AUTO) 0.7 % (0-1); EOSINOPHILS # (AUTO) 0.1 X10'3 (0-0.9); EOSINOPHILS % (AUTO) 1.5 % (0-6); HEMATOCRIT 40.3 % (35.0-45.0); HEMOGLOBIN 13.3 g/dl (12.0-16.0); LYMPHOCYTES # (AUTO) 1.3 X10'3 (1.1-4.8); MEAN CORPUSCULAR HEMOGLOBIN 28.3 PG (27.0-31.0); MEAN CORPUSCULAR VOLUME 85.7 FL (78-98); MEAN PLATELET VOLUME 8.1 FL (7.4-10.4); MONOCYTES # (AUTO) 0.4 X10'3 (0-0.9); MONOCYTES % (AUTO) 4.7 % (2-12); NEUTROPHILS # (AUTO) 7.4 X10'3 (1.8-7.7); NEUTROPHILS % (AUTO) 79.1 % (42-75); PLATELET COUNT 313 X10'3 (140-440); RED BLOOD COUNT 4.71 X10'6 (4.20-5.60); RED CELL DISTRIBUTION WIDTH 13.6 % (11.5-14.5); WHITE BLOOD COUNT 9.3 X10'3 (4.5-11.0)
--- NOTE | 2020-08-30 11:15 | NUR ---
PT BACK FROM BATHROOM HAD A BM. ASKED IF SHE URINATED FOR A UA. PT BECAME BELIGERANT AND STATES, I ONLY HAD TO POOP, I COULDNT PEE I HAVE NO FLUIDS IN ME, YOUR GOING TO HAVE TO CATH ME."
[2020-08-30 11:22] LABS: ALANINE AMINOTRANSFERASE 43 U/L (12-78); ALBUMIN 4.1 G/DL (3.4-5.0); ALBUMIN/GLOBULIN RATIO 1.1 (1.1-1.5); ALKALINE PHOSPHATASE 73 IU/L (46-116); ANION GAP 10 (8-16); ASPARTATE AMINO TRANSFERASE 23 U/L (10-37); BILIRUBIN,TOTAL 0.3 MG/DL (0.1-1.0); BLOOD UREA NITROGEN 13 MG/DL (7-18); BUN/CREATININE RATIO 15.1 (6.6-38.0); CHLORIDE 107 MMOL/L (99-107); CREATININE 0.86 MG/DL (0.40-0.90); GLUCOSE 115 MG/DL (70-104); LIPASE < 50 U/L (73-393); POTASSIUM 3.8 MMOL/L (3.5-5.1); SODIUM 143 MMOL/L (135-145); TOTAL CARBON DIOXIDE 26.3 MMOL/L (24-32); eGFR 72 ML/MIN
[2020-08-30] MEDS ORDERED: OLANZapine 2.5MG tablet PO STA (11:27)
[2020-08-30] MEDS ORDERED: diphenhydrAMINE 50 mg/ml inj IV ONE (12:10)
[2020-08-30] MEDS ORDERED: proCHLORperazine 10 MG/2 ml inj IV ONE (12:10)
--- NOTE | 2020-08-30 12:27 | NUR ---
emesis x1 clear in color, 100cc
--- NOTE | 2020-08-30 13:17 | NUR ---
pt sleeping quietly at this time.
[2020-08-30 13:19] VITALS: BP 155/98
[2020-08-30 13:35] LABS: CLARITY,URINE SLIGHTLY CLOUDY (Clear); COLOR,URINE YELLOW (Yellow); GLUCOSE, URINE NEGATIVE (Neg); KETONES,URINE 15 mg/dl (Neg); LEUKOCYTE ESTERASE ,URINE NEGATIVE (Neg); NITRITES, URINE NEGATIVE (Neg); OCCULT BLOOD,URINE NEGATIVE (Neg); PROTEIN,URINE NEGATIVE (Neg); UROBILINOGEN,URINE 0.2 E.U/dL (0.2-1.0)
[2020-08-30 13:36] LABS: UA COLLECTION TYPE CLN CATCH MIDSTREAM
[2020-08-30 13:49] LABS: SQUAMOUS EPITHELIAL CELL,UR FEW /LPF (FEW)
[2020-08-30 13:50] LABS: BACTERIA,URINE FEW /HPF (Neg); RBC,URINE 0-2 /HPF (0-2); WBC,URINE 0-4 /HPF (0-4)
== END 2020-08-30 14:03 | disposition home or self-care (01) ==
LOC: ER 10:31
DX: R11.2 Nausea with vomiting, unspecified (principal); R10.84 Generalized abdominal pain; Z87.442 Personal history of urinary calculi; J45.909 Unspecified asthma, uncomplicated; G89.29 Other chronic pain; M19.90 Unspecified osteoarthritis, unspecified site; F12.90 Cannabis use, unspecified, uncomplicated; Z86.61 Personal history of infections of the central nervous system; Z90.710 Acquired absence of both cervix and uterus; Z90.721 Acquired absence of ovaries, unilateral; Z72.89 Other problems related to lifestyle; Z88.0 Allergy status to penicillin; Z88.1 Allergy status to other antibiotic agents; Z88.6 Allergy status to analgesic agent; Z88.8 Allergy status to other drugs, medicaments and biological substances; Z79.899 Other long term (current) drug therapy
CPT/HCPCS: 36415; 74019; 80053; 81001; 83690; 85025; 96361; 96374; 96375; 96376; 99284; J0780; J1200; J1885; J2060; J7030

== ENCOUNTER 2020-09-20 11:15 | Emergency (ER) | payer MEDICAID ==
[~2020-09-20] VITALS: Ht 157.5 cm; Wt 113.0 kg
[2020-09-20] MEDS ORDERED: diphenhydrAMINE 50 mg/ml inj IV ONE (11:30)
[2020-09-20] MEDS ORDERED: ketorolac trometh. 30mg/ml inj. IV ONE (11:30)
[2020-09-20] MEDS ORDERED: ondansetron/PF 4mg/2ml inj IV ONE (11:30)
[2020-09-20] MEDS ORDERED: normal saline 1000ML IV soln IVB ONE (11:30)
[2020-09-20 11:59] LABS: BASOPHILS % (AUTO) 0.5 % (0-1); EOSINOPHILS # (AUTO) 0.3 X10'3 (0-0.9); EOSINOPHILS % (AUTO) 4.6 % (0-6); HEMOGLOBIN 13.6 g/dl (12.0-16.0); LYMPHOCYTES # (AUTO) 1.1 X10'3 (1.1-4.8); LYMPHOCYTES % (AUTO) 15.8 % (21-51); MEAN CORPUSCULAR HEMOGLOBIN 28.3 PG (27.0-31.0); MEAN CORPUSCULAR VOLUME 85.6 FL (78-98); MEAN PLATELET VOLUME 8.7 FL (7.4-10.4); MONOCYTES # (AUTO) 0.3 X10'3 (0-0.9); MONOCYTES % (AUTO) 3.6 % (2-12); NEUTROPHILS # (AUTO) 5.4 X10'3 (1.8-7.7); NEUTROPHILS % (AUTO) 75.5 % (42-75); PLATELET COUNT 294 X10'3 (140-440); RED CELL DISTRIBUTION WIDTH 14.1 % (11.5-14.5); WHITE BLOOD COUNT 7.1 X10'3 (4.5-11.0)
[2020-09-20 12:08] LABS: ALANINE AMINOTRANSFERASE 27 U/L (12-78); ALBUMIN 3.9 G/DL (3.4-5.0); ALBUMIN/GLOBULIN RATIO 1.1 (1.1-1.5); ALKALINE PHOSPHATASE 60 IU/L (46-116); ANION GAP 12 (8-16); ASPARTATE AMINO TRANSFERASE 16 U/L (10-37); BILIRUBIN,TOTAL 0.3 MG/DL (0.1-1.0); BLOOD UREA NITROGEN 16 MG/DL (7-18); BUN/CREATININE RATIO 15.8 (6.6-38.0); CALCIUM 9.3 MG/DL (8.5-10.1); CHLORIDE 106 MMOL/L (99-107); CREATININE 1.01 MG/DL (0.40-0.90); GLUCOSE 110 MG/DL (70-104); LIPASE < 50 U/L (73-393); POTASSIUM 4.1 MMOL/L (3.5-5.1); SODIUM 142 MMOL/L (135-145); TOTAL CARBON DIOXIDE 24.3 MMOL/L (24-32); TOTAL PROTEIN 7.6 G/DL (6.4-8.2); eGFR 60 ML/MIN
[2020-09-20 12:45] VITALS: BP 141/101
[2020-09-20] MEDS ORDERED: LORazepam 2 mg/ml vial IV ONE (12:45)
[2020-09-20] MEDS ORDERED: sucralfate 1gm/10ml UD suspension PO STA (12:48)
[2020-09-20] MEDS ORDERED: mag hydrox/Alum hydrox/simeth 30ml oral suspension PO ONE (12:50)
[2020-09-20] MEDS ORDERED: LIDOcaine Viscous 15ml cup MM ONE (12:50)
== END 2020-09-20 14:17 | disposition home or self-care (01) ==
LOC: ER 11:16
DX: R11.0 Nausea (principal); R10.13 Epigastric pain; J45.909 Unspecified asthma, uncomplicated; G89.29 Other chronic pain; M19.90 Unspecified osteoarthritis, unspecified site; F12.90 Cannabis use, unspecified, uncomplicated; Z86.003 Personal history of in-situ neoplasm of oral cavity, esophagus and stomach; Z86.69 Personal history of other diseases of the nervous system and sense organs; Z87.440 Personal history of urinary (tract) infections; Z87.442 Personal history of urinary calculi; Z90.710 Acquired absence of both cervix and uterus; Z90.721 Acquired absence of ovaries, unilateral; Z88.0 Allergy status to penicillin; Z88.1 Allergy status to other antibiotic agents; Z88.6 Allergy status to analgesic agent; Z88.8 Allergy status to other drugs, medicaments and biological substances; Z79.899 Other long term (current) drug therapy
CPT/HCPCS: 36415; 80053; 83690; 85025; 96361; 96374; 96375; 99284; J1200; J1885; J2060; J2405; J7030

== ENCOUNTER 2020-12-28 15:16 | Emergency (ER) | payer MEDICAID ==
[~2020-12-28] VITALS: Ht 157.5 cm; Wt 114.0 kg
[~2020-12-28 15:16] MED LIST changes: +METH-797 PO; -METH500T6 PO
[2020-12-28] MEDS ORDERED: LORazepam 1 MG tablet PO ONE (17:05)
[2020-12-28 17:44] VITALS: BP 138/90
[2020-12-28 17:46] LABS: CLARITY,URINE SLIGHTLY CLOUDY (Clear); COLOR,URINE YELLOW (Yellow); GLUCOSE, URINE NEGATIVE (Neg); KETONES,URINE NEGATIVE (Neg); LEUKOCYTE ESTERASE ,URINE NEGATIVE (Neg); NITRITES, URINE NEGATIVE (Neg); OCCULT BLOOD,URINE MODERATE (Neg); PROTEIN,URINE NEGATIVE (Neg); UROBILINOGEN,URINE 0.2 E.U/dL (0.2-1.0)
[2020-12-28 17:48] LABS: UA COLLECTION TYPE CLN CATCH MIDSTREAM
[2020-12-28 17:51] LABS: MUCUS STRANDS NONE SEEN /LPF (Neg); SQUAMOUS EPITHELIAL CELL,UR FEW /LPF (FEW)
[2020-12-28 17:52] LABS: BACTERIA,URINE FEW /HPF (Neg); RBC,URINE 0-2 /HPF (0-2); WBC,URINE 0-4 /HPF (0-4)
[2020-12-28] MEDS ORDERED: PRED20TA PO (18:04)
== END 2020-12-28 18:42 | disposition home or self-care (01) ==
LOC: ER 15:17
DX: J30.9 Allergic rhinitis, unspecified (principal); R51.9 Headache, unspecified; G40.909 Epilepsy, unspecified, not intractable, without status epilepticus; J45.909 Unspecified asthma, uncomplicated; M19.90 Unspecified osteoarthritis, unspecified site; G89.29 Other chronic pain; F12.90 Cannabis use, unspecified, uncomplicated; Z87.442 Personal history of urinary calculi; Z87.440 Personal history of urinary (tract) infections; Z90.721 Acquired absence of ovaries, unilateral; Z79.899 Other long term (current) drug therapy; Z88.0 Allergy status to penicillin; Z88.6 Allergy status to analgesic agent; Z88.1 Allergy status to other antibiotic agents; Z88.8 Allergy status to other drugs, medicaments and biological substances
CPT/HCPCS: 81001; 99283

== ENCOUNTER 2021-01-08 09:01 | Emergency (ER) | payer MEDICAID ==
[~2021-01-08] VITALS: Ht 157.5 cm; Wt 118.2 kg
[2021-01-08] MEDS ORDERED: metoclopramide 5 mg/ml inj IV ONE (09:20)
[2021-01-08] MEDS ORDERED: ketorolac trometh. 30mg/ml inj. IV ONE (09:20)
[2021-01-08] MEDS ORDERED: normal saline 1000ML IV soln IV ONE (09:20)
[2021-01-08] MEDS ORDERED: LORazepam 2 mg/ml vial IV ONE (09:20)
[2021-01-08] MEDS ORDERED: diphenhydrAMINE 50 mg/ml inj IV ONE (09:20)
[2021-01-08 09:32] LABS: URINE HCG NEGATIVE (NEG)
[2021-01-08 09:44] LABS: CLARITY,URINE CLEAR (Clear); COLOR,URINE YELLOW (Yellow); GLUCOSE, URINE NEGATIVE (Neg); KETONES,URINE NEGATIVE (Neg); LEUKOCYTE ESTERASE ,URINE NEGATIVE (Neg); NITRITES, URINE NEGATIVE (Neg); OCCULT BLOOD,URINE TRACE-INTACT (Neg); PH,URINE 6.5 (4.8-8.0); PROTEIN,URINE NEGATIVE (Neg); UA COLLECTION TYPE VOIDED; UROBILINOGEN,URINE 0.2 E.U/dL (0.2-1.0)
[2021-01-08 09:49] LABS: BACTERIA,URINE FEW /HPF (Neg); MUCUS STRANDS NONE SEEN /LPF (Neg); RBC,URINE 0-2 /HPF (0-2); SQUAMOUS EPITHELIAL CELL,UR MODERATE /LPF (FEW); WBC,URINE 0-4 /HPF (0-4)
[2021-01-08 10:07] LABS: BASOPHILS % (AUTO) 0.4 % (0-1); EOSINOPHILS # (AUTO) 0.2 X10'3 (0-0.9); EOSINOPHILS % (AUTO) 2.4 % (0-6); HEMATOCRIT 41.9 % (35.0-45.0); HEMOGLOBIN 13.9 g/dl (12.0-16.0); LYMPHOCYTES # (AUTO) 2.1 X10'3 (1.1-4.8); LYMPHOCYTES % (AUTO) 20.3 % (21-51); MEAN CORPUSCULAR HEMOGLOBIN 29.2 PG (27.0-31.0); MEAN CORPUSCULAR HGB CONC 33.3 g/dL (33.0-36.5); MEAN CORPUSCULAR VOLUME 87.7 FL (78-98); MEAN PLATELET VOLUME 8.1 FL (7.4-10.4); MONOCYTES # (AUTO) 0.5 X10'3 (0-0.9); MONOCYTES % (AUTO) 5.1 % (2-12); NEUTROPHILS # (AUTO) 7.3 X10'3 (1.8-7.7); NEUTROPHILS % (AUTO) 71.8 % (42-75); PLATELET COUNT 305 X10'3 (140-440); RED BLOOD COUNT 4.78 X10'6 (4.20-5.60); RED CELL DISTRIBUTION WIDTH 14.4 % (11.5-14.5); WHITE BLOOD COUNT 10.2 X10'3 (4.5-11.0)
[2021-01-08 10:22] LABS: ALANINE AMINOTRANSFERASE 25 U/L (12-78); ALBUMIN 3.9 G/DL (3.4-5.0); ALBUMIN/GLOBULIN RATIO 0.9 (1.1-1.5); ALKALINE PHOSPHATASE 82 IU/L (46-116); ANION GAP 12 (8-16); ASPARTATE AMINO TRANSFERASE 14 U/L (10-37); BILIRUBIN,TOTAL 0.4 MG/DL (0.1-1.0); BLOOD UREA NITROGEN 16 MG/DL (7-18); BUN/CREATININE RATIO 16.5 (6.6-38.0); CALCIUM 9.1 MG/DL (8.5-10.1); CHLORIDE 105 MMOL/L (99-107); CREATININE 0.97 MG/DL (0.40-0.90); GLUCOSE 99 MG/DL (70-104); LIPASE < 50 U/L (73-393); POTASSIUM 3.9 MMOL/L (3.5-5.1); SODIUM 143 MMOL/L (135-145); TOTAL CARBON DIOXIDE 26.5 MMOL/L (24-32); TOTAL PROTEIN 8.1 G/DL (6.4-8.2); eGFR 63 ML/MIN
[2021-01-08] MEDS ORDERED: LIDOcaine Viscous 15ml cup MM ONE (10:30)
[2021-01-08] MEDS ORDERED: fentaNYL/PF 50MCG/1 ML 2ML syringe IV ONE (10:30)
[2021-01-08] MEDS ORDERED: mag hydrox/Alum hydrox/simeth 30ml oral suspension PO ONE (10:30)
[2021-01-08] MEDS ORDERED: famotidine/PF 10 mg/ml inj IV ONE (10:30)
[2021-01-08 11:42] VITALS: BP 163/101
== END 2021-01-08 13:27 | disposition home or self-care (01) ==
LOC: ER 09:01
DX: R10.10 Upper abdominal pain, unspecified (principal); G89.29 Other chronic pain; J45.909 Unspecified asthma, uncomplicated; M19.90 Unspecified osteoarthritis, unspecified site; F12.90 Cannabis use, unspecified, uncomplicated; Z76.5 Malingerer [conscious simulation]; Z86.69 Personal history of other diseases of the nervous system and sense organs; Z87.442 Personal history of urinary calculi; Z87.440 Personal history of urinary (tract) infections; Z90.710 Acquired absence of both cervix and uterus; Z98.890 Other specified postprocedural states; Z88.0 Allergy status to penicillin; Z88.5 Allergy status to narcotic agent; Z88.1 Allergy status to other antibiotic agents; Z88.8 Allergy status to other drugs, medicaments and biological substances; Z79.899 Other long term (current) drug therapy
CPT/HCPCS: 36415; 71045; 80053; 81001; 81025; 83690; 84145; 85025; 93005; 96361; 96374; 96375; 99285; J1200; J1885; J2060; J2765; J3010; J3490; J7030

== ENCOUNTER 2021-01-16 10:32 | Emergency (ER) | payer MEDICAID ==
[~2021-01-16] VITALS: Ht 157.5 cm; Wt 115.9 kg
[2021-01-16] MEDS ORDERED: magnesium 2GM in 50ml NS 50 ML IV ONE (11:20)
[2021-01-16] MEDS ORDERED: ringers solution, lacted 1,000 ML IV ONE (11:20)
[2021-01-16] MEDS ORDERED: LORazepam 2 mg/ml vial IV ONE (11:20)
[2021-01-16] MEDS ORDERED: haloperidol lactate 5mg/ml inj IV ONE (11:20)
--- NOTE | 2021-01-16 12:30 | NUR ---
UP TO BSC WITHOUT ASST. TOLERATED WELL. VOIDED 250CC CLEAR YELLOW URINE.
[2021-01-16 13:52] VITALS: BP 186/109
== END 2021-01-16 13:54 | disposition home or self-care (01) ==
LOC: ER 10:33
DX: F12.188 Cannabis abuse with other cannabis-induced disorder (principal); Z88.0 Allergy status to penicillin; Z88.6 Allergy status to analgesic agent; Z88.1 Allergy status to other antibiotic agents; Z88.5 Allergy status to narcotic agent; Z79.899 Other long term (current) drug therapy
CPT/HCPCS: 96365; 96375; 99284; J1630; J2060; J3475; J7120

== ENCOUNTER 2024-06-18 16:53 | Emergency (ER) | payer MEDICAID ==
[~2024-06-18] VITALS: Ht 157.5 cm; Wt 107.7 kg
[2024-06-18 17:52] LABS: BILIRUBIN,URINE NEGATIVE (Neg); CLARITY,URINE CLOUDY (Clear); COLOR,URINE YELLOW (Yellow); GLUCOSE, URINE NEGATIVE (Neg); KETONES,URINE NEGATIVE (Neg); LEUKOCYTE ESTERASE ,URINE NEGATIVE (Neg); NITRITES, URINE NEGATIVE (Neg); OCCULT BLOOD,URINE TRACE-INTACT (Neg); PH,URINE 5.5 (4.8-8.0); PROTEIN,URINE NEGATIVE (Neg); UROBILINOGEN,URINE 0.2 E.U/dL (0.2-1.0)
[2024-06-18 17:54] LABS: URINE HCG NEGATIVE (NEG)
[2024-06-18 18:04] LABS: UA COLLECTION TYPE CLN CATCH MIDSTREAM
[2024-06-18 18:05] LABS: MUCUS STRANDS MODERATE /LPF (Neg); SQUAMOUS EPITHELIAL CELL,UR MANY /LPF (FEW)
[2024-06-18 18:06] LABS: HYALINE CASTS 0-3 /LPF (NEGATIVE)
[2024-06-18 18:19] LABS: AMORPHOUS URATES 1+; BACTERIA,URINE FEW /HPF (Neg); CAL OXALATE CRYSTALS 4+ /HPF (NEGATIVE)
[2024-06-18 18:28] LABS: BASOPHILS % (AUTO) 0.5 % (0-1); EOSINOPHILS # (AUTO) 0.2 X10'3 (0-0.9); EOSINOPHILS % (AUTO) 2.4 % (0-6); HEMATOCRIT 43.1 % (35.0-45.0); HEMOGLOBIN 14.5 g/dl (12.0-16.0); LYMPHOCYTES # (AUTO) 2.7 X10'3 (1.1-4.8); LYMPHOCYTES % (AUTO) 33.1 % (21-51); MEAN CORPUSCULAR HGB CONC 33.7 g/dL (33.0-36.5); MEAN CORPUSCULAR VOLUME 86.1 FL (78-98); MEAN PLATELET VOLUME 8.3 FL (7.4-10.4); MONOCYTES # (AUTO) 0.6 X10'3 (0-0.9); MONOCYTES % (AUTO) 6.9 % (2-12); NEUTROPHILS # (AUTO) 4.7 X10'3 (1.8-7.7); NEUTROPHILS % (AUTO) 57.1 % (42-75); PLATELET COUNT 274 X10'3 (140-440); RED CELL DISTRIBUTION WIDTH 13.9 % (11.5-14.5); WHITE BLOOD COUNT 8.1 X10'3 (4.5-11.0)
[2024-06-18 18:38] LABS: ALANINE AMINOTRANSFERASE 21 U/L (12-78); ALBUMIN 4.1 G/DL (3.4-5.0); ALKALINE PHOSPHATASE 72 IU/L (46-116); ANION GAP 7 (8-16); ASPARTATE AMINO TRANSFERASE 20 U/L (10-37); BILIRUBIN,TOTAL 0.2 MG/DL (0.1-1.0); BLOOD UREA NITROGEN 22 MG/DL (7-18); BUN/CREATININE RATIO 20.8 (10.0-20.0); CALCIUM 9.2 MG/DL (8.5-10.1); CHLORIDE 103 MMOL/L (99-107); CREATININE 1.06 MG/DL (0.40-0.90); GLUCOSE 91 MG/DL (70-104); LIPASE 16 U/L (16-77); POTASSIUM 3.8 MMOL/L (3.5-5.1); SODIUM 140 MMOL/L (135-145); TOTAL PROTEIN 8.1 G/DL (6.4-8.2); eCRCL 52 ML/MIN; eGFR 56 ML/MIN
[2024-06-18] MEDS: HYDROcodone/acetaminophen 5mg/325mg tablet PO ONE (22:11)
[2024-06-18] MEDS: ondansetron 4mg rapidly disintigrating tab PO ONE (22:11)
[2024-06-18] MEDS: ketorolac trometh 30MG/ML vial 30 MG/ML VIAL IM ONE (22:13)
[2024-06-19 00:02] VITALS: BP 136/84; PULSE 80; RESP 18; TEMP 98.6; O2SAT 98
== END 2024-06-19 00:04 | disposition home or self-care (01) ==
LOC: ER 16:54
DX: M54.50 Low back pain, unspecified (principal); R10.9 Unspecified abdominal pain; J45.909 Unspecified asthma, uncomplicated; F12.90 Cannabis use, unspecified, uncomplicated; Z88.0 Allergy status to penicillin; Z88.6 Allergy status to analgesic agent; Z88.5 Allergy status to narcotic agent; Z79.899 Other long term (current) drug therapy; Z90.710 Acquired absence of both cervix and uterus; Z90.721 Acquired absence of ovaries, unilateral; Z87.440 Personal history of urinary (tract) infections
CPT/HCPCS: 36415; 74176; 80053; 81001; 81025; 83690; 85025; 96372; 99285; J1885

== ENCOUNTER 2024-06-29 09:09 | Emergency (ER) | payer MEDICAID ==
[~2024-06-29] VITALS: Ht 158.8 cm; Wt 111.6 kg
[2024-06-29] MEDS ORDERED: SUCR1TAB PO ×2 (10:17→10:18)
[2024-06-29] MEDS ORDERED: PANT40TA54 PO (10:18)
[2024-06-29] MEDS ORDERED: DICY20TA17 PO (10:20)
[2024-06-29 11:23] LABS: URINE HCG NEGATIVE (NEG)
[2024-06-29 11:28] LABS: BILIRUBIN,URINE NEGATIVE (Neg); CLARITY,URINE CLEAR (Clear); COLOR,URINE YELLOW (Yellow); GLUCOSE, URINE NEGATIVE (Neg); KETONES,URINE NEGATIVE (Neg); LEUKOCYTE ESTERASE ,URINE NEGATIVE (Neg); NITRITES, URINE NEGATIVE (Neg); OCCULT BLOOD,URINE TRACE-INTACT (Neg); PH,URINE 6.5 (4.8-8.0); PROTEIN,URINE NEGATIVE (Neg); UROBILINOGEN,URINE 0.2 E.U/dL (0.2-1.0)
[2024-06-29 11:29] LABS: BASOPHILS # (AUTO) 0.1 X10'3 (0-0.2); BASOPHILS % (AUTO) 0.9 % (0-1); EOSINOPHILS # (AUTO) 0.3 X10'3 (0-0.9); EOSINOPHILS % (AUTO) 4.6 % (0-6); HEMATOCRIT 39.2 % (35.0-45.0); LYMPHOCYTES # (AUTO) 1.6 X10'3 (1.1-4.8); MEAN CORPUSCULAR HEMOGLOBIN 28.8 PG (27.0-31.0); MEAN CORPUSCULAR HGB CONC 33.2 g/dL (33.0-36.5); MEAN CORPUSCULAR VOLUME 86.8 FL (78-98); MEAN PLATELET VOLUME 9.1 FL (7.4-10.4); MONOCYTES # (AUTO) 0.3 X10'3 (0-0.9); MONOCYTES % (AUTO) 4.7 % (2-12); NEUTROPHILS # (AUTO) 4.1 X10'3 (1.8-7.7); NEUTROPHILS % (AUTO) 64.8 % (42-75); PLATELET COUNT 245 X10'3 (140-440); RED BLOOD COUNT 4.51 X10'6 (4.20-5.60); RED CELL DISTRIBUTION WIDTH 13.6 % (11.5-14.5); WHITE BLOOD COUNT 6.4 X10'3 (4.5-11.0)
[2024-06-29 11:33] LABS: BACTERIA,URINE NONE SEEN /HPF (Neg); MUCUS STRANDS NONE SEEN /LPF (Neg); RBC,URINE 0-2 /HPF (0-2); SQUAMOUS EPITHELIAL CELL,UR FEW /LPF (FEW); UA COLLECTION TYPE CLN CATCH MIDSTREAM; WBC,URINE NONE SEEN /HPF (0-4)
[2024-06-29 11:37] LABS: ALANINE AMINOTRANSFERASE 22 U/L (12-78); ALBUMIN 3.4 G/DL (3.4-5.0); ALKALINE PHOSPHATASE 65 IU/L (46-116); ANION GAP 7 (8-16); ASPARTATE AMINO TRANSFERASE 13 U/L (10-37); BILIRUBIN,TOTAL 0.3 MG/DL (0.1-1.0); BLOOD UREA NITROGEN 19 MG/DL (7-18); BUN/CREATININE RATIO 23.2 (10.0-20.0); CALCIUM 8.8 MG/DL (8.5-10.1); CHLORIDE 106 MMOL/L (99-107); CREATININE 0.82 MG/DL (0.40-0.90); GLUCOSE 91 MG/DL (70-104); LIPASE 14 U/L (16-77); POTASSIUM 4.2 MMOL/L (3.5-5.1); SODIUM 139 MMOL/L (135-145); TOTAL CARBON DIOXIDE 26.4 MMOL/L (24-32); TOTAL PROTEIN 6.9 G/DL (6.4-8.2); eCRCL 69 ML/MIN; eGFR 75 ML/MIN
[2024-06-29] MEDS ORDERED: LINA145C PO (12:01)
[2024-06-29 12:08] VITALS: BP 133/92; PULSE 70; RESP 16; TEMP 97.8; O2SAT 99
== END 2024-06-29 12:09 | disposition home or self-care (01) ==
LOC: ER 09:10
DX: K59.00 Constipation, unspecified (principal); R10.84 Generalized abdominal pain; J45.909 Unspecified asthma, uncomplicated; M19.90 Unspecified osteoarthritis, unspecified site; G89.29 Other chronic pain; F12.90 Cannabis use, unspecified, uncomplicated; Z90.710 Acquired absence of both cervix and uterus; Z90.721 Acquired absence of ovaries, unilateral; Z88.0 Allergy status to penicillin; Z88.1 Allergy status to other antibiotic agents; Z79.52 Long term (current) use of systemic steroids; Z79.899 Other long term (current) drug therapy
CPT/HCPCS: 36415; 80053; 81001; 81025; 83690; 85025; 99283

== ENCOUNTER 2024-07-03 09:19 | Emergency (ER) | payer MEDICAID ==
[~2024-07-03] VITALS: Ht 157.5 cm; Wt 112.8 kg
[~2024-07-03 09:19] MED LIST changes: +DICY20TA17 PO; +LINA145C PO; +SUCR1TAB PO
[2024-07-03 09:24] VITALS: BP 200/116; PULSE 98; RESP 16; TEMP 98.2; O2SAT 98
[2024-07-03 10:19] LABS: BASOPHILS # (AUTO) 0.1 X10'3 (0-0.2); BASOPHILS % (AUTO) 0.5 % (0-1); EOSINOPHILS # (AUTO) 0.2 X10'3 (0-0.9); EOSINOPHILS % (AUTO) 1.9 % (0-6); HEMOGLOBIN 14.2 g/dl (12.0-16.0); LYMPHOCYTES # (AUTO) 1.5 X10'3 (1.1-4.8); LYMPHOCYTES % (AUTO) 11.9 % (21-51); MONOCYTES # (AUTO) 0.5 X10'3 (0-0.9); MONOCYTES % (AUTO) 3.6 % (2-12); NEUTROPHILS # (AUTO) 10.5 X10'3 (1.8-7.7); NEUTROPHILS % (AUTO) 82.1 % (42-75); PLATELET COUNT 309 X10'3 (140-440); RED BLOOD COUNT 4.89 X10'6 (4.20-5.60); RED CELL DISTRIBUTION WIDTH 14.2 % (11.5-14.5); WHITE BLOOD COUNT 12.8 X10'3 (4.5-11.0)
[2024-07-03 10:28] LABS: ALANINE AMINOTRANSFERASE 29 U/L (12-78); ALKALINE PHOSPHATASE 80 IU/L (46-116); ANION GAP 10 (8-16); ASPARTATE AMINO TRANSFERASE 17 U/L (10-37); BILIRUBIN,TOTAL 0.3 MG/DL (0.1-1.0); BLOOD UREA NITROGEN 22 MG/DL (7-18); BUN/CREATININE RATIO 24.4 (10.0-20.0); CALCIUM 8.9 MG/DL (8.5-10.1); CHLORIDE 107 MMOL/L (99-107); GLUCOSE 107 MG/DL (70-104); LIPASE 14 U/L (16-77); POTASSIUM 4.2 MMOL/L (3.5-5.1); SODIUM 140 MMOL/L (135-145); TOTAL CARBON DIOXIDE 23.3 MMOL/L (24-32); TOTAL PROTEIN 8.1 G/DL (6.4-8.2); eCRCL 61 ML/MIN; eGFR 67 ML/MIN
[2024-07-03 14:16] LABS: URINE HCG NEGATIVE (NEG)
[2024-07-03 14:19] LABS: BILIRUBIN,URINE NEGATIVE (Neg); CLARITY,URINE CLEAR (Clear); COLOR,URINE YELLOW (Yellow); GLUCOSE, URINE NEGATIVE (Neg); KETONES,URINE NEGATIVE (Neg); LEUKOCYTE ESTERASE ,URINE NEGATIVE (Neg); NITRITES, URINE NEGATIVE (Neg); OCCULT BLOOD,URINE MODERATE (Neg); PH,URINE 5.5 (4.8-8.0); PROTEIN,URINE NEGATIVE (Neg); UROBILINOGEN,URINE 0.2 E.U/dL (0.2-1.0)
[2024-07-03 14:26] LABS: SQUAMOUS EPITHELIAL CELL,UR MODERATE /LPF (FEW); WBC,URINE 0-4 /HPF (0-4)
[2024-07-03 14:27] LABS: BACTERIA,URINE FEW /HPF (Neg); UA COLLECTION TYPE VOIDED
== END 2024-07-03 12:02 | disposition left against medical advice (07) ==
LOC: ER 09:19
DX: K59.00 Constipation, unspecified (principal); R10.9 Unspecified abdominal pain; Z53.21 Procedure and treatment not carried out due to patient leaving prior to being seen by health care provider
CPT/HCPCS: 36415; 80053; 81001; 81025; 83690; 85025

== ENCOUNTER 2024-07-03 12:43 | Emergency (ER) | payer MEDICAID ==
[~2024-07-03] VITALS: Ht 157.5 cm; Wt 121.4 kg
[2024-07-03 12:53] VITALS: BP 130/78
[2024-07-03] MEDS: metoclopramide 5 mg/ml inj IV ONE (14:22)
[2024-07-03] MEDS: diphenhydrAMINE 50 mg/ml inj IM ONE (14:23)
[2024-07-03] MEDS: normal saline 1000ml 1,000 ML IV ONE (14:24)
[2024-07-03] MEDS: magnesium citrate 296ml oral solution PO ONE (14:41)
[2024-07-03 15:54] VITALS: PULSE 100; RESP 16; TEMP 97.6; O2SAT 98
== END 2024-07-03 15:55 | disposition home or self-care (01) ==
LOC: ER 12:44
DX: K59.00 Constipation, unspecified (principal); J45.909 Unspecified asthma, uncomplicated; M19.90 Unspecified osteoarthritis, unspecified site; F12.90 Cannabis use, unspecified, uncomplicated; G89.29 Other chronic pain; Z90.710 Acquired absence of both cervix and uterus; Z90.721 Acquired absence of ovaries, unilateral; Z87.442 Personal history of urinary calculi; Z88.0 Allergy status to penicillin; Z88.1 Allergy status to other antibiotic agents; Z88.5 Allergy status to narcotic agent; Z88.6 Allergy status to analgesic agent; Z79.52 Long term (current) use of systemic steroids; Z79.899 Other long term (current) drug therapy
CPT/HCPCS: 96361; 96372; 96374; 99284; J1200; J2765; J7030

== ENCOUNTER 2025-06-07 12:22 | Emergency (ER) | payer MEDICAID ==
[~2025-06-07] VITALS: Ht 157.5 cm; Wt 99.9 kg
[~2025-06-07 12:22] MED LIST changes: +AMIT25TA22 PO; -AMIT25TA9 PO; -FLO0.4C PO; +TAMS-55 PO
[2025-06-07 13:08] LABS: LEUKOCYTE ESTERASE ,URINE NEGATIVE (Neg); NITRITES, URINE NEGATIVE (Neg); OCCULT BLOOD,URINE SMALL (Neg)
[2025-06-07 13:09] LABS: URINE HCG NEGATIVE (NEG)
[2025-06-07 13:16] LABS: UA COLLECTION TYPE CLN CATCH MIDSTREAM
[2025-06-07 13:18] LABS: SQUAMOUS EPITHELIAL CELL,UR MODERATE /LPF (FEW)
[2025-06-07 13:19] LABS: MUCUS STRANDS FEW /LPF (Neg)
[2025-06-07] MEDS: ketorolac trometh 30MG/ML vial 30 MG/ML VIAL IM ONE (13:26)
[2025-06-07] MEDS: ondansetron 4mg rapidly disintigrating tab PO ONE (13:27)
--- NOTE | 2025-06-07 13:30 | Physician Documentation ---
History of Present Illness General Chief Complaint: Back Pain Stated Complaint: KIDNEY STONES Time Seen by MD: 13:30 Primary Medical Doctor: NO PCP History of Present Illness Initial Comments Patient is a 50-year-old female who complains of back pain in the morning for the last six days. The patient states that she has back pain in the upper lumbar lower thoracic region that has been occurring daily lasting 4-5 hours and then improves. The patient states she has a history of kidney stones. She states that she is not having any fevers or chills. She has no other urinary symptoms. Patient denies any nausea or vomiting. She states she has a 6/10 pain when she arrived in the emergency department she received a IM shot of Toradol and she states her pain is improved. Patient's symptoms are moderate and persistent Medication Reconciliation Allergies: Coded Allergies: Penicillins (Verified Allergy, Severe, THROAT SWELLING AND HIVES, 06/07/25) aspirin (Verified Allergy, Severe, THROAT SWELLING & HIVES, 06/07/25) codeine (Verified Allergy, Severe, THROAT SWELLING & HIVES, 06/07/25) erythromycin base (Verified Allergy, Severe, THROAT SWELLING & HIVES, 06/07/25) morphine (Verified Allergy, Severe, THROAT SWELLING & HIVES, 06/07/25) fentanyl (Verified Allergy, Unknown, 06/07/25) haloperidol (Verified Allergy, Unknown, 06/29/24) Scheduled Aripiprazole (Aripiprazole), 1 TAB PO QAM, (Reported) Cetirizine HCl (Cetirizine HCl), 1 TAB PO HS, (Reported) Fluticasone/Salmeterol (Fluticasone-Salmeterol 113-14), 1 PUFF INH BID, (Reported) Lamotrigine (Lamotrigine), 1 TAB PO DAILY, (Reported) Montelukast Sodium (Montelukast Sodium), 1 TAB PO DAILY, (Reported) Pantoprazole Sodium (Pantoprazole Sodium), 40 MG PO DAILY Progesterone,Micronized (Progesterone), 1 CAP PO HS, (Reported) Sucralfate (Sucralfate), 1 TAB PO QID Tamsulosin Hcl* (Flomax*), 1 TAB PO HS, (Reported) Scheduled PRN Albuterol Sulfate (Ventolin Hfa), 2 PUFFS INH Q4H PRN for SOB or wheezing, (Reported) Miscellaneous Medications Budesonide/Formoterol Fumarate (Symbicort 160-4.5 Mcg Inhaler), (Reported) Calcipotriene (Calcipotriene), (Reported) Clobetasol Propionate (Clobetasol Propionate), (Reported) Estradiol (Lyllana), (Reported) Pseudoephedrine HCl (Nasal Decongestant), (Reported) Tirzepatide (Zepbound), (Reported) Discontinued Medications Alprazolam (Alprazolam), 1 MG PO BID PRN for for anxiety/agitation, (Reported) Discontinued Reason: patient no longer taking Amitriptyline Hcl (Amitriptyline Hcl), 50 MG PO HS, (Reported) Discontinued Reason: patient no longer taking Dicyclomine HCl (Dicyclomine HCl), 1 TAB PO Q8H Discontinued Reason: patient no longer taking Fluticasone Propionate (Fluticasone Propionate), 1 SPRAY WADE DAILY, (Reported) Discontinued Reason: patient no longer taking Hydrocodone/Acetaminophen ([place] 5-325 Tablet), 1 TAB PO TID PRN Discontinued Reason: patient no longer taking Linaclotide (Linzess), 1 CAP PO DAILY Discontinued Reason: patient no longer taking Methocarbamol (Methocarbamol), 2 TAB PO TID PRN for muscle spasms, (Reported) Discontinued Reason: patient no longer taking Oxycodone Hcl/Acetaminophen 5/325 MG* (Percocet 5/325 MG*), 1 TAB PO Q4H PRN for pain, (Reported) Discontinued Reason: patient no longer taking Past Medical History Past Medical History: Seizures, Asthma, *GI/HEPATOBILIARY*, Diverticulosis, Kidney Stones, UTI, Arthritis, Chronic Pain Past Surgical History: hysterectomy, other Other Past Surgical History: left oophorectomy, lithotripsy Smoking: Non-Smoker Alcohol Use: Rarely Drug Use: marijuana Lives with: Family Lives In: Home Review of Systems All Other Systems at this time: Reviewed and Negative Physical Exam Physical Exam Vital Signs: Temperature: 97.8, Source: Oral, Heart Rate: 99, Respiratory Rate: 18, BP: 117/89, Pulse Oximetry: 98, Weight: 99.900 Oxygen Flow Rate: 0 Physical Exam VITALS: Reviewed and as above. GENERAL: Alert, no apparent distress. HEENT: Normocephalic, atraumatic, PERRL, EOMI, dry mucosa, no erythema RESPIRATORY: Lungs clear, normal breath sounds, no respiratory distress. CHEST: No accessory muscle use, no retractions CV: Regular rate, rhythm, no edema, no murmur, No: JVD GI: Soft, non-tender, bowels sounds present, no rebound, guarding, or rigidity BACK: No CVA tenderness, or swelling MUSCULOSKELETAL: No deformities, no edema SKIN: Warm and dry, no rash NEURO: Oriented x4, No motor or sensory deficit PSYCH: Normal mood and affect, no agitation Progress Results/Orders Results/Orders Completed Orders - OHLEDER HAIRSTON MD Hcg, Ur Ql (06/07/25 12:35) Cbc/Diff (06/07/25 12:35) Lipase (06/07/25 12:35) CMP (06/07/25 12:35) Ua W/Microscopic, Cult If Ind (06/07/25 12:34) Procalcitonin (06/07/25 13:51) Vital Signs 06/07/25 06/07/25 06/07/25 12:29 13:38 15:13 Temp 97.8 98.2 Pulse 99 96 Resp 18 16 16 B/P (MAP) 117/89 133/84 Pulse Ox 98 98 O2 Flow Rate 0 Laboratory Tests Test 06/07/25 12:34 06/07/25 13:13 06/07/25 14:00 Urine Specimen Description Cln catch midstream Urine Color Yellow Urine Clarity Slightly cloudy Urine pH 5.5 Urine Specific [place] >=1.030 Urine Protein 100 H Urine Glucose (UA) Negative Urine Ketones 15 H Urine Occult Blood Small Urine Nitrite Negative Urine Bilirubin Moderate Urine Urobilinogen 1.0 Urine Leukocyte Esterase Negative Urine RBC 0-2 Urine WBC 0-4 Urine Squamous Epithelial Cells Moderate Urine Bacteria Few Urine Mucus Few Urine Culture Indicated Not ind Volume Urine Centrifuged 6 ml Urine HCG, Qualitative Negative Urine Comment Low volume White Blood Count 9.6 Red Blood Count 5.40 Hemoglobin 16.3 H Hematocrit 47.1 H Mean Corpuscular Volume 87.2 Mean Corpuscular Hemoglobin 30.3 Mean Corpuscular Hemoglobin Concent 34.7 Red Cell Distribution Width 13.4 Platelet Count 345 Mean Platelet Volume 9.0 Neutrophils (%) (Auto) 70.7 Lymphocytes (%) (Auto) 20.6 L Monocytes (%) (Auto) 5.5 Eosinophils (%) (Auto) 1.9 Basophils (%) (Auto) 1.3 H Neutrophils # (Auto) 6.8 Lymphocytes # (Auto) 2.0 Monocytes # (Auto) 0.5 Eosinophils # (Auto) 0.2 Basophils # (Auto) 0.1 CBC Comment Sodium Level 139 Potassium Level 4.6 Chloride Level 105 Carbon Dioxide Level 23.8 L Anion Gap 10 Blood Urea Nitrogen 16 Creatinine 1.13 H Estimated GFR/1.73 m2 51 BUN/Creatinine Ratio 14.2 Glucose Level 100 Calcium Level 9.4 Total Bilirubin 0.7 Aspartate Amino Transf (AST/SGOT) 37 Alanine Aminotransferase (ALT/SGPT) 44 Alkaline Phosphatase 75 Total Protein 8.8 H Albumin 4.2 Globulin 4.6 H Albumin/Globulin Ratio 0.9 L Lipase 8 L Chemistry Comments Procalcitonin < 0.05 Medical Decision Making Findings The patient has 4-5 days of back pain in the upper lumbar lower thoracic regions paraspinally. She does have history of kidney stones. She does not have significant hematuria on her UA, her history seems more consistent with musculos keletal pain. She was given a shot of Toradol with improvement. The patient has had 12 CT scans the last four of which were reviewed and showed no evidence of kidney stones. Given this finding and in the patient's urinalysis results I have encouraged the patient to use ibuprofen she can start Flomax on the off chance that it as a kidney stone but at this time she is well-appearing and not in significant pain with fairly unremarkable vitals and labs. Prior hospitalizations have been reviewed the patient's pulse oximetry was interpreted as normal and adequate. The patient will be discharged she has a benign exam. Departure Time of Disposition: 15:09 Disposition: 01 HOME / SELF CARE / HOMELESS Impression: Primary Impression: Low back pain Qualified Codes: M54.50 - Low back pain, unspecified Discharge Instructions: Acute Back Pain, Adult Additional Instructions: You can go ahead and take your tamsulosin, treat the pain with ibuprofen 600 mg every 6 hours. Return for significant worsening of her symptoms or if you develop fevers. Follow up with her healthcare providers soon as possible. Referrals: NO PRIMARY CARE PROVIDER (PCP) Signature Scribe Signature: The note accurately reflects work and decisions made by me.Eder Barrera MD 06/09/25 10:21 Attestation: The note accurately reflects work and decisions made by me.Eder Barrera MD 06/09/25 10:21 EDER BARRERA MD Jun 07, 2025 13:30
[2025-06-07 13:38] LABS: MEAN PLATELET VOLUME 9.0 FL (7.4-10.4); RED CELL DISTRIBUTION WIDTH 13.4 % (11.5-14.5)
[2025-06-07 13:42] LABS: CREATININE 1.13 MG/DL (0.40-0.90); TOTAL CARBON DIOXIDE 23.8 MMOL/L (24-32); eCRCL 48 ML/MIN; eGFR 51 ML/MIN
[2025-06-07] MEDS ORDERED: TIRZ5PEN3 (13:48)
[2025-06-07] MEDS ORDERED: BUDE10.2 (13:48)
[2025-06-07] MEDS ORDERED: MONT-40 PO (13:48)
[2025-06-07] MEDS ORDERED: CALC60CR8 (13:48)
[2025-06-07] MEDS ORDERED: LAMO-24 PO (13:48)
[2025-06-07] MEDS ORDERED: PROG100C11 PO (13:48)
[2025-06-07] MEDS ORDERED: PSEU-237 (13:48)
[2025-06-07] MEDS ORDERED: [UNRECOGNIZED DRUG - CODE] (13:48)
[2025-06-07] MEDS ORDERED: ARIP2TAB67 PO (13:48)
[2025-06-07] MEDS ORDERED: CLOB15OI21 (13:48)
[2025-06-07 15:13] VITALS: BP 133/84; PULSE 96; RESP 16; TEMP 98.2; O2SAT 98
== END 2025-06-07 15:14 | disposition home or self-care (01) ==
LOC: ER 12:23
DX: M54.50 Low back pain, unspecified (principal); J45.909 Unspecified asthma, uncomplicated; M19.90 Unspecified osteoarthritis, unspecified site; F12.90 Cannabis use, unspecified, uncomplicated; Z88.0 Allergy status to penicillin; Z88.1 Allergy status to other antibiotic agents; Z88.5 Allergy status to narcotic agent; Z88.6 Allergy status to analgesic agent; Z90.710 Acquired absence of both cervix and uterus; Z90.721 Acquired absence of ovaries, unilateral
CPT/HCPCS: 36415; 80053; 81001; 81025; 83690; 84145; 85025; 96372; 99283; J1885

== ENCOUNTER 2025-06-19 12:34 | Emergency (ER) | payer MEDICAID ==
[~2025-06-19] VITALS: Ht 157.5 cm; Wt 99.6 kg
[~2025-06-19 12:34] MED LIST changes: -ALPR2TAB7 PO; -AMIT25TA22 PO; +ARIP2TAB67 PO; +BUDE10.2; +CALC60CR8; +CLOB15OI21; -DICY20TA17 PO; -FLUT16SP26 NAS; -HYDR-4383 PO; +LAMO-24 PO; -LINA145C PO; -METH-797 PO; +MONT-40 PO; -PER5325T PO; +PROG100C11 PO; +PSEU-237; +TIRZ5PEN3; +[UNRECOGNIZED DRUG - CODE]
--- NOTE | 2025-06-19 13:02 | Physician Documentation ---
History of Present Illness ~ Chief Complaint: Blood in Urine Stated Complaint: KIDNEY STONES Time Seen by MD: 14:33 Primary Medical Doctor: NO PCP HPI This is a 50-year-old female who presents with three weeks of bloody urine, patient reports history of frequent kidney stones. Patient reports that she has had urinary frequency this is passing very small amounts of urine each time difficulty urinating. Medication Reconciliation Allergies: Coded Allergies: Penicillins (Verified Allergy, Severe, THROAT SWELLING AND HIVES, 06/19/25) aspirin (Verified Allergy, Severe, THROAT SWELLING & HIVES, 06/19/25) codeine (Verified Allergy, Severe, THROAT SWELLING & HIVES, 06/19/25) erythromycin base (Verified Allergy, Severe, THROAT SWELLING & HIVES, 06/19/25) morphine (Verified Allergy, Severe, THROAT SWELLING & HIVES, 06/19/25) fentanyl (Verified Allergy, Unknown, 06/19/25) haloperidol (Verified Allergy, Unknown, 06/29/24) Scheduled Aripiprazole (Aripiprazole), 1 TAB PO QAM, (Reported) Cetirizine HCl (Cetirizine HCl), 1 TAB PO HS, (Reported) Fluticasone/Salmeterol (Fluticasone-Salmeterol 113-14), 1 PUFF INH BID, (Reported) Lamotrigine (Lamotrigine), 1 TAB PO DAILY, (Reported) Montelukast Sodium (Montelukast Sodium), 1 TAB PO DAILY, (Reported) Pantoprazole Sodium (Pantoprazole Sodium), 40 MG PO DAILY Progesterone,Micronized (Progesterone), 1 CAP PO HS, (Reported) Sucralfate (Sucralfate), 1 TAB PO QID Tamsulosin Hcl* (Flomax*), 1 TAB PO HS, (Reported) Scheduled PRN Albuterol Sulfate (Ventolin Hfa), 2 PUFFS INH Q4H PRN for SOB or wheezing, (Reported) Miscellaneous Medications Budesonide/Formoterol Fumarate (Symbicort 160-4.5 Mcg Inhaler), (Reported) Calcipotriene (Calcipotriene), (Reported) Clobetasol Propionate (Clobetasol Propionate), (Reported) Estradiol (Lyllana), (Reported) Pseudoephedrine HCl (Nasal Decongestant), (Reported) Tirzepatide (Zepbound), (Reported) Past Medical History Past Medical History: Seizures, Asthma, *GI/HEPATOBILIARY*, Diverticulosis, Kidney Stones, UTI, Arthritis, Chronic Pain Past Surgical History: hysterectomy, other Other Past Surgical History: left oophorectomy, lithotripsy Alcohol Use: Rarely Drug Use: marijuana Lives with: Family Lives In: Home Review of Systems All Other Systems at this time: Reviewed and Negative ROS As stated above in the HPI, otherwise all systems are reviewed and negative. Musculoskeletal: Reports: back pain Physical Exam Vital Signs: RN Vital Signs have been reviewed: Yes, Temperature: 97.4, Source: Temporal, Heart Rate: 120, Respiratory Rate: 18, BP: 129/92, Pulse Oximetry: 98, Weight: 99.600 Oxygen Flow Rate: 0 Physical Exam VITALS: Reviewed and as above. GENERAL: Alert, nontoxic appearing, no apparent distress. HEENT: RESPIRATORY: No increased work of breathing, no respiratory distress, speaking in full clear sentences CHEST: CV: BACK: GI: MUSCULOSKELETAL: SKIN: NEURO: PSYCH: General Appearance: alert, WD/WN, mild distress EENT: PERRL/EOMI Neck: normal inspection Respiratory: no respiratory distress Chest: no accessory muscle use Cardiovascular: normal peripheral pulses Back: decreased range of motion, muscle spasm, vertebral tenderness Extremities: normal range of motion Neurologic: oriented x4 Psychiatric: normal mood/affect Skin: normal color Progress Results/Orders Results/Orders Orders - TRACY FREEMAN PAC Ct Abdomen Pelvis (06/19/25 14:50) Completed Orders - TRACY FREEMAN PAC Ct Abdomen Pelvis (06/19/25 14:50) Ketorolac Trometh 30mg/Ml Vial (Toradol (06/19/25 14:55) Ondansetron Disint. Tablet (Zofran Odt T (06/19/25 16:30) Vital Signs 06/19/25 06/19/25 06/19/25 06/19/25 12:53 14:32 15:15 15:30 Temp 97.4 97.4 Pulse 120 97 Resp 18 16 15 16 B/P (MAP) 129/92 164/103 (123) Pulse Ox 98 97 O2 Flow Rate 0 0 06/19/25 16:49 Temp 97.4 Pulse 91 Resp 17 B/P (MAP) 160/70 Pulse Ox 99 Laboratory Tests Test 06/19/25 12:57 06/19/25 13:10 Urine Specimen Description Cln catch midstream Urine Color Yellow Urine Clarity Slightly cloudy Urine pH 6.0 Urine Specific [place] 1.015 Urine Protein 30 H Urine Glucose (UA) Negative Urine Ketones Trace H Urine Occult Blood Moderate H Urine Nitrite Negative Urine Bilirubin Moderate Urine Urobilinogen 1.0 Urine Leukocyte Esterase Negative Urine RBC 3-10 Urine WBC 0-4 Urine Squamous Epithelial Cells Many Urine Bacteria Few Urine Mucus Moderate Urine Culture Indicated Not ind Volume Urine Centrifuged 10 ml Urine HCG, Qualitative Negative Urine Comment White Blood Count 11.0 Red Blood Count 5.17 Hemoglobin 15.3 Hematocrit 45.4 H Mean Corpuscular Volume 87.8 Mean Corpuscular Hemoglobin 29.5 Mean Corpuscular Hemoglobin Concent 33.6 Red Cell Distribution Width 13.9 Platelet Count 338 Mean Platelet Volume 8.6 Neutrophils (%) (Auto) 85.9 H Lymphocytes (%) (Auto) 9.7 L Monocytes (%) (Auto) 3.9 Eosinophils (%) (Auto) 0.2 Basophils (%) (Auto) 0.3 Neutrophils # (Auto) 9.5 H Lymphocytes # (Auto) 1.1 Monocytes # (Auto) 0.4 Eosinophils # (Auto) 0.0 Basophils # (Auto) 0.0 CBC Comment Sodium Level 138 Potassium Level 3.8 Chloride Level 102 Carbon Dioxide Level 28.2 Anion Gap 8 Blood Urea Nitrogen 20 H Creatinine 0.98 H Estimated GFR/1.73 m2 61 BUN/Creatinine Ratio 20.4 H Glucose Level 118 H Calcium Level 8.9 Total Bilirubin 0.5 Aspartate Amino Transf (AST/SGOT) 14 Alanine Aminotransferase (ALT/SGPT) 56 Alkaline Phosphatase 75 Total Protein 7.9 Albumin 4.0 Globulin 3.9 Albumin/Globulin Ratio 1.0 L Lipase 11 L Chemistry Comments Medical Decision Making Additional information obtaine: N/A Findings MSE performed in triage and patient returned to ED lobby by nursing staff to await available ED room. CT imaging reassuring for no renal lithiasis yet acute on chronic lumbar pathology. Patient is dressed in the emergency department. These findings conveyed to patient and we will follow up with the primary care physician for consideration and of pain management and physical therapy. No clinical suspicion for cauda equina syndrome, epidural abscess or diskitis. Discharged grossly neurologically intact in the emergency department without focal neuro deficits. Patient very pleased with the care received. Urinary Diff Dx:Considerations: Include: Musculoskeletal pain, Pyelonephritis, Urinary Obstruction, Urolithiasis, Urinary retention, UTI Genital Diff Dx:Considerations: Include: Bartholin abscess, Bartholin cyst, Menorrhagia, Menometrorrhagia, Menstrual bleeding, Myomatous uterus, Vaginitis Departure Disposition: HOME / SELF CARE / HOMELESS Impression: Primary Impression: Lumbar arthropathy Condition: Improved Additional Instructions: Your CT imaging today is reassuring for no kidney stones yet you have advanced lumbar arthropathy requiring follow up with the primary care physician. Referrals: NO PRIMARY CARE PROVIDER (PCP) Education Educated: Patient Educated regarding: diagnosis, treatment, prognosis, need for follow up Signature Scribe Signature: . Attestation: . SHWETA DECKERP Jun 19, 2025 13:02 TRACY FREEMAN PAC Jun 19, 2025 16:36
[2025-06-19 13:18] LABS: MEAN PLATELET VOLUME 8.6 FL (7.4-10.4); RED CELL DISTRIBUTION WIDTH 13.9 % (11.5-14.5)
[2025-06-19 13:27] LABS: LEUKOCYTE ESTERASE ,URINE NEGATIVE (Neg); NITRITES, URINE NEGATIVE (Neg); OCCULT BLOOD,URINE MODERATE (Neg)
[2025-06-19 13:33] LABS: URINE HCG NEGATIVE (NEG)
[2025-06-19 13:34] LABS: CREATININE 0.98 MG/DL (0.40-0.90); TOTAL CARBON DIOXIDE 28.2 MMOL/L (24-32); eCRCL 56 ML/MIN; eGFR 61 ML/MIN
[2025-06-19 13:39] LABS: UA COLLECTION TYPE CLN CATCH MIDSTREAM
[2025-06-19 13:41] LABS: MUCUS STRANDS MODERATE /LPF (Neg); SQUAMOUS EPITHELIAL CELL,UR MANY /LPF (FEW)
[2025-06-19] MEDS: ketorolac trometh 30MG/ML vial 30 MG/ML VIAL IV ONE (15:15)
--- NOTE | 2025-06-19 16:05 | RADIOLOGY REPORT ---
Indication: r/o kidney stone Technique: CT axial images of the abdomen and pelvis are obtained without contrast. Coronal and sagittal reformats were obtained. Radiation Dose Information: CTDI volume is 32 mGy. Dose-length product is 1553 mGy*cm Comparison: CT CT ABDOMEN PELVIS on DOS: 06/18/24, FINDINGS: There is limited interpretation of the abdomen and pelvis without administration of intravenous contrast. Lung bases demonstrate no pleural effusion. Adrenal glands, spleen unremarkable. Fatty infiltration of the pancreas. Liver unremarkable in shape. No CT evidence for cholelithiasis. The kidneys demonstrate no hydronephrosis / nephrolithiasis. Right renal cyst measuring 3.1 cm. Stomach is partially distended. Small bowel loops are normal in caliber. Moderate volume stool in the colon. Normal appendix. Abdominal aortic atherosclerotic disease. Bladder partially distended. No free pelvic fluid. No inguinal lymphadenopathy. [id number] bilateral sacroiliac degenerative joint disease. Moderate thoracolumbar degenerative disc disease. 5 mm anterolisthesis L4 upon L5. Moderate to advanced lumbar facet hypertrophic changes at L3-4, L4-5, L5-S1. Moderate to high-grade spinal canal stenosis at L4-5. IMPRESSION: Limited evaluation without contrast. No evidence for obstructive uropathy. Moderate volume stool within the colon. Colonic diverticular disease. 5 mm anterolisthesis L4 upon L5 with moderate high-grade spinal canal stenosis at L4-5. Other findings as described.
[2025-06-19] MEDS: ondansetron 4mg rapidly disintigrating tab PO ONE (16:34)
[2025-06-19 16:49] VITALS: BP 160/70; PULSE 91; RESP 17; TEMP 97.4; O2SAT 99
== END 2025-06-19 16:52 | disposition home or self-care (01) ==
LOC: ER 12:34
DX: M46.96 Unspecified inflammatory spondylopathy, lumbar region (principal); F12.90 Cannabis use, unspecified, uncomplicated; J45.909 Unspecified asthma, uncomplicated; M19.90 Unspecified osteoarthritis, unspecified site; Z88.0 Allergy status to penicillin; Z88.1 Allergy status to other antibiotic agents; Z88.5 Allergy status to narcotic agent; Z88.6 Allergy status to analgesic agent; Z90.710 Acquired absence of both cervix and uterus; Z90.721 Acquired absence of ovaries, unilateral
CPT/HCPCS: 36415; 74176; 80053; 81001; 81025; 83690; 85025; 96374; 99285; J1885

== ENCOUNTER 2025-08-15 21:25 | Emergency (ER) | payer MEDICAID ==
[2025-08-15 22:10] LABS: MEAN PLATELET VOLUME 8.6 FL (7.4-10.4); RED CELL DISTRIBUTION WIDTH 13.7 % (11.5-14.5)
[2025-08-15 22:19] LABS: CREATININE 1.20 MG/DL (0.40-0.90); TOTAL CARBON DIOXIDE 22.4 MMOL/L (24-32); eGFR 48 ML/MIN
[2025-08-15] MEDS ORDERED: ONDA-243 PO (23:19)
--- NOTE | 2025-08-15 23:19 | Physician Documentation ---
History of Present Illness ~ Chief Complaint: Nausea Stated Complaint: VOMITING Time Seen by MD: 23:14 Primary Medical Doctor: NO PCP Mode of Arrival: EMS HPI 50-year-old female with a known history of excessive cannabis use. Patient reports for the last two days she has been having nausea and vomiting to the point where she is unable to smoke cannabis. She denies any other recreational drug use and denies being able to drink alcohol or and/or take NSAIDs. Reports similar symptoms in the past. Medication Reconciliation Allergies: Coded Allergies: Penicillins (Verified Allergy, Severe, THROAT SWELLING AND HIVES, 08/15/25) aspirin (Verified Allergy, Severe, THROAT SWELLING & HIVES, 08/15/25) codeine (Verified Allergy, Severe, THROAT SWELLING & HIVES, 08/15/25) erythromycin base (Verified Allergy, Severe, THROAT SWELLING & HIVES, 08/15/25) morphine (Verified Allergy, Severe, THROAT SWELLING & HIVES, 08/15/25) fentanyl (Verified Allergy, Unknown, 08/15/25) haloperidol (Verified Allergy, Unknown, 06/29/24) Scheduled Aripiprazole (Aripiprazole), 1 TAB PO QAM, (Reported) Cetirizine HCl (Cetirizine HCl), 1 TAB PO HS, (Reported) Fluticasone/Salmeterol (Fluticasone-Salmeterol 113-14), 1 PUFF INH BID, (Reported) Lamotrigine (Lamotrigine), 1 TAB PO DAILY, (Reported) Montelukast Sodium (Montelukast Sodium), 1 TAB PO DAILY, (Reported) Pantoprazole Sodium (Pantoprazole Sodium), 40 MG PO DAILY Progesterone,Micronized (Progesterone), 1 CAP PO HS, (Reported) Sucralfate (Sucralfate), 1 TAB PO QID Tamsulosin Hcl* (Flomax*), 1 TAB PO HS, (Reported) Scheduled PRN Albuterol Sulfate (Ventolin Hfa), 2 PUFFS INH Q4H PRN for SOB or wheezing, (Reported) Miscellaneous Medications Budesonide/Formoterol Fumarate (Symbicort 160-4.5 Mcg Inhaler), (Reported) Calcipotriene (Calcipotriene), (Reported) Clobetasol Propionate (Clobetasol Propionate), (Reported) Estradiol (Lyllana), (Reported) Pseudoephedrine HCl (Nasal Decongestant), (Reported) Tirzepatide (Zepbound), (Reported) Past Medical History Past Medical History: Seizures, Asthma, *GI/HEPATOBILIARY*, Diverticulosis, Kidney Stones, UTI, Arthritis, Chronic Pain Past Surgical History: hysterectomy, other Other Past Surgical History: left oophorectomy, lithotripsy Alcohol Use: Rarely Drug Use: marijuana Lives with: Family Lives In: Home Physical Exam Vital Signs: RN Vital Signs have been reviewed: Yes, Temperature: 97.8, Source: Temporal, Heart Rate: 79, Respiratory Rate: 16, BP: 198/101, Pulse Oximetry: 98 Oxygen Flow Rate: 0 General Appearance: alert, WD/WN, moderate distress EENT: PERRL/EOMI Neck: normal inspection Respiratory: lungs clear Chest: no accessory muscle use Cardiology Exam: normal peripheral pulses Gastrointestinal: other (Generalized discomfort) Rectal: deferred Extremities: normal range of motion Neurologic: oriented x4 Psychiatric: anxiety Skin: normal color Progress Results/Orders Results/Orders Orders - TRACY FREEMAN PAC Metoclopramide Inj (Reglan Inj) (08/15/25 23:10) Diphenhydramine Inj (Benadryl Inj.) (08/15/25 23:10) Ondansetron Inj. (Zofran 4mg/2ml Vial) (08/15/25 23:10) Potassium Cl 20meq/100ml Bag (Potassium (08/15/25 23:10) Vital Signs 08/15/25 08/15/25 08/15/25 21:54 22:47 22:47 Temp 97.8 Pulse 89 79 Resp 15 16 B/P (MAP) 170/98 198/101 (133) Pulse Ox 97 98 O2 Flow Rate 0 Laboratory Tests Test 08/15/25 21:27 White Blood Count 9.3 Red Blood Count 4.86 Hemoglobin 14.3 Hematocrit 43.2 Mean Corpuscular Volume 88.9 Mean Corpuscular Hemoglobin 29.5 Mean Corpuscular Hemoglobin Concent 33.1 Red Cell Distribution Width 13.7 Platelet Count 295 Mean Platelet Volume 8.6 Neutrophils (%) (Auto) 77.5 H Lymphocytes (%) (Auto) 16.5 L Monocytes (%) (Auto) 5.4 Eosinophils (%) (Auto) 0.1 Basophils (%) (Auto) 0.5 Neutrophils # (Auto) 7.3 Lymphocytes # (Auto) 1.5 Monocytes # (Auto) 0.5 Eosinophils # (Auto) 0.0 Basophils # (Auto) 0.0 CBC Comment Sodium Level 145 Potassium Level 3.1 L Chloride Level 112 H Carbon Dioxide Level 22.4 L Anion Gap 11 Blood Urea Nitrogen 20 H Creatinine 1.20 H Estimated GFR/1.73 m2 48 BUN/Creatinine Ratio 16.7 Glucose Level 193 H Calcium Level 9.4 Total Bilirubin 0.4 Aspartate Amino Transf (AST/SGOT) 13 Alanine Aminotransferase (ALT/SGPT) 18 Alkaline Phosphatase 69 Total Protein 7.8 Albumin 4.1 Globulin 3.7 Albumin/Globulin Ratio 1.1 Lipase 11 L Chemistry Comments Medical Decision Making Additional information obtaine: old records Findings Examination of the patient's history is consistent with cannabis hyperemesis syndrome with hypokalemia. Will go ahead and provided with IV hydration resuscitation, supplemental potassium for a K of 3.1, Reglan, Benadryl and Zofran for vomiting and anxiety. She will be reassessed and discharged when stable. Patient is signed out at midnight to attending pending reassessment discharge. She is feeling much better. Diff Dx GI Bleed:Consideration: Include: Other (Noncontributory) Diff Dx Pain:Considerations: Include: Other Diff Dx N/V/D:Considerations: Include: Appendicitis, Bowel obstruction, Dehydration, DKA, Diarrhea - bacterial, Diarrhea - parasitic, Diarrhea - viral, Diverticulitis, Diverticulosis, Drug toxicity, Electrolyte imbalance, Food poisoning, Gastroenteritis, GE reflux, GI bleed, Hepatitis, Hernia, Hypovolemia, Hypotension, Inflammatory BD, Impaction, Malnutrition, Pancreatitis, , PUD, Renal failure, Urolithiasis, Urinary obstruction, UTI, Other (Cannabis hyperemesis syndrome) Diff Dx Rectal:Considerations: Include: Other (Contributory) Departure Disposition: HOME / SELF CARE / HOMELESS Impression: Primary Impression: Cannabinoid hyperemesis syndrome Additional Impressions: Hypokalemia Hypertension Qualified Codes: I10 - Essential (primary) hypertension Anxiety Condition: Improved Discharge Instructions: Cannabis Use Disorder Additional Instructions: Your examination history today and treatment with centered around cannabis hyperemesis syndrome. Please do your best to abstain from cannabis use and make a follow up appointment with the primary care physician and to return to the emergency department as needed. Please have a anastacio Figueroa. Referrals: NO PRIMARY CARE PROVIDER (PCP) Prescriptions ONDANSETRON ODT 4mg tablet (ONDANSETRON ODT) 4 Mg Tab.rapdis 1 TAB PO Q6H PRN PRN for nausea/vomiting for 4 Days, #16 TAB 0 Refills Prov: TRACY FREEMAN PAC 08/15/25 Education Educated: Patient Educated regarding: diagnosis, treatment, prognosis, need for follow up Signature Scribe Signature: . Attestation: . TRACY FREEMAN PAC Aug 15, 2025 23:19
[2025-08-15] MEDS: potassium CL 10mEq/100ml bag 100 ML IV SCH (23:32)
[2025-08-15] MEDS: ondansetron/PF 4mg/2ml inj IV ONE (23:32)
[2025-08-15] MEDS: metoclopramide 5 mg/ml inj IV ONE (23:49)
[2025-08-16 02:10] VITALS: BP 124/74; PULSE 70; RESP 14; TEMP 98.1; O2SAT 99
== END 2025-08-16 02:12 | disposition home or self-care (01) ==
LOC: ER 21:25
DX: R11.16 Cannabis hyperemesis syndrome (principal); E87.6 Hypokalemia; F12.90 Cannabis use, unspecified, uncomplicated; F41.9 Anxiety disorder, unspecified; G89.29 Other chronic pain; I10 Essential (primary) hypertension; M19.90 Unspecified osteoarthritis, unspecified site; Z87.440 Personal history of urinary (tract) infections; Z87.442 Personal history of urinary calculi; Z88.0 Allergy status to penicillin; Z88.6 Allergy status to analgesic agent; Z88.5 Allergy status to narcotic agent; Z88.1 Allergy status to other antibiotic agents; Z90.710 Acquired absence of both cervix and uterus; Z90.721 Acquired absence of ovaries, unilateral; Z88.8 Allergy status to other drugs, medicaments and biological substances; Z79.899 Other long term (current) drug therapy
CPT/HCPCS: 36415; 80053; 83690; 85025; 96365; 96366; 96375; 99285; J1200; J2405; J2470; J2765; J3480; J7030